=== PATIENT | female | born 1935 | race Caucasian/White ===

== ENCOUNTER 2016-09-17 08:15 | Observation (INO) | payer MEDICARE, OTHER ==
[2016-09-17] MEDS ORDERED: NS 0.9% 1000 ML* 1,000 ML IV ONE (08:18)
[2016-09-17] MEDS ORDERED: Meclizine TAB* 12.5 MG PO ONE (08:19)
[2016-09-17] MEDS ORDERED: Ondansetron INJ* 2 MG/ML VIAL IV ONE (08:19)
[2016-09-17 08:50] LABS: Hematocrit 43 % (35-47); Hemoglobin 14.4 g/dl (12.0-16.0); Mean Corpuscular HGB Conc 34 g/dl (31-36); Mean Corpuscular Hemoglobin 32 pg (27-31); Mean Corpuscular Volume 96 fL (80-97); Mean Platelet Volume 7 um3 (7.4-10.4); Red Blood Count 4.44 10^6/ul (4.0-5.4); Red Cell Distribution Width 13 % (10.5-15); White Blood Count 14.1 10^3/ul (3.5-10.8)
[2016-09-17 09:02] LABS: ALT 15 U/L (7-52); AST 17 U/L (13-39); Albumin 3.1 g/dL (3.2-5.2); Alkaline Phosphatase 94 U/L (34-104); Anion Gap 6 mmol/L (2-11); BUN/Creatinine Ratio 22.4 (8-20); Blood Urea Nitrogen 17 mg/dL (6-24); C Reactive Protein 19.05 mg/L (< 5.00); CO2 Carbon Dioxide 24 mmol/L (22-32); Calcium 8.7 mg/dL (8.6-10.3); Chloride 103 mmol/L (101-111); EGFR African American 94.2 (>60); EGFR Non-African American 73.2 (>60); Glucose 134 mg/dL (70-100); Magnesium 1.8 mg/dL (1.9-2.7); Potassium 3.9 mmol/L (3.5-5.0); Sodium 133 mmol/L (133-145); Total Protein 6.1 g/dL (6.4-8.9)
[2016-09-17 09:07] LABS: Troponin I 0.01 ng/mL (<0.04)
[2016-09-17 09:21] LABS: Alcohol < 10 mg/dL (<10)
[2016-09-17 09:30] LABS: TSH (Thyroid Stimulating Horm) 1.23 mcIU/mL (0.34-5.60)
--- NOTE | 2016-09-17 09:57 | RAD ---
Indication: Dizziness. CT of the brain without contrast. Ventricular structures are midline. No midline shift is noted. The extraction spaces are unremarkable. Coronal infarct is noted in the left frontal lobe unchanged from previous exam. Right periventricular focal area of low density also represents a lacunar infarct. These are unchanged from previous exam. There is no evidence of mass or hemorrhage. No other high or low density lesions are identified. IMPRESSION: Lacunar infarct left frontal lobe and right periventricular white matter consistent with old lacunar infarcts unchanged from prior exam. No hemorrhage is noted.
--- NOTE | 2016-09-17 10:19 | RAD ---
Indication: Dizziness. 2 views of the chest are reviewed. Chronic pleural changes in the right costophrenic angle. No alveolar consolidation is noted. There is prominent interstitium which may represent chronic interstitial disease. No pneumothorax is noted. When compared to previous exam of January 20, 2016 no significant change is noted. IMPRESSION: Chronic pleural changes in the right lung base. Likely chronic interstitial disease is noted.
[2016-09-17 10:35] LABS: Urine Bilirubin Negative (Negative); Urine Glucose Negative (Negative); Urine Nitrite Negative (Negative)
[2016-09-17 12:55] LABS: Benzodiazepine Urine Screen None Detected (None Detect)
[2016-09-17] MEDS: Ciprofloxacin TAB* 500 MG PO SCH ×2 (13:18→20:43)
[2016-09-17] MEDS ORDERED: Albuterol HFA INHALER* 8 gm MDI INH PRN (14:49)
[2016-09-17] MEDS ORDERED: Acetaminophen TAB* 325 MG PO PRN (14:50)
--- NOTE | 2016-09-17 17:19 | HP ---
HOSPITAL MEDICINE HISTORY AND PHYSICAL: DATE OF ADMISSION: 09/17/16 PRIMARY CARE PHYSICIAN: Dr. Zamudio. ATTENDING PHYSICIAN: Nishant Ortiz MD *(dictation provided by Roslyn Norman NP) . CHIEF COMPLAINT: Lightheadedness, weakness, and fall. HISTORY OF PRESENT ILLNESS: Ms. Yoo is an 81-year-old female with a past medical history of COPD, anxiety, depression, and a history of pulmonary embolism who presents today to the hospital after having lightheadedness, wooziness, and fall with weakness. Ms. Yoo states she was in her normal state of health until this morning. She was walking when she suddenly felt very woozy and lightheadedness. She denies actual dizziness. She states that she fell and felt very weak and was unable to get up off the floor and therefore , she called the EMS and was brought to the hospital. She denies any recent fevers, chills, nausea, abdominal pain or diarrhea. She has had no new frequency or dysuria. She has felt some itching on her vulva and thought perhaps she had a yeast infection and was planning to start Monistat. In the emergency room, Ms. Yoo was confirmed to have leukocytosis with a white blood cell count of 14. She had a urinalysis which was positive for leukocyte esterase but negative for nitrites. Her chest x-ray showed no acute process. CT of brain was negative. Her other laboratory values were essentially unremarkable. PAST MEDICAL HISTORY: 1. COPD. 2. Anxiety. 3. Depression. 4. GERD. 5. History of pulmonary embolism. 6. History of hysterectomy. 7. History of breast cancer. MEDICATIONS: 1. Advair Diskus 1 puff inhaled b.i.d. 2. Multivitamin 1 cap p.o. daily. 3. Prevacid 15 mg p.o. daily. 4. Seroquel 200 mg p.o. daily. 5. Tegretol 100 mg p.o. b.i.d. 6. Venlafaxine 75 mg p.o. daily. ALLERGIES: LITHIUM, STATINS, BUPROPION. FAMILY HISTORY: The patient reports her mother and father had heart disease and at an elderly age. SOCIAL HISTORY: No report of alcohol, tobacco, or drug use. The patient lives with her who would be the healthcare proxy. REVIEW OF SYSTEMS: A 14-point review of systems was completed with Ms. Yoo and all those not mentioned above are negative. PHYSICAL EXAMINATION GENERAL: Ms. Yoo is sitting in the bed. She is in no acute distress. VITAL SIGNS: Temperature 98.9, heart rate 75, respiratory rate 18, O2 saturation 96% on room air, blood pressure 127/54. LUNGS: Clear to auscultation bilaterally with no accessory muscle use and good aeration. HEART: S1, S2. No murmur, rub, or gallop and regular. ABDOMEN: Soft, nontender with bowel sounds positive x4. EXTREMITIES: No cyanosis or edema. GENITOURINARY: External examination was undertaken of the patient's vulva. She does show significant agglutination with nonvisualization of the urethra. There is no evidence of discharge or redness consistent with yeast. NEUROLOGIC: She is alert and oriented x3. She moves all extremities equally. There is no facial asymmetry or focal weakness. Extraocular movements are intact. LABORATORY DATA AND DIAGNOSTIC STUDIES: WBC 14.1, hemoglobin 14.4, hematocrit 43, platelet count 237. Sodium 133, potassium 3.9, chloride 103, serum bicarbonate 24, BUN 17, creatinine 0.76, glucose 134, lactic acid 1.4, magnesium 1.8. Troponin 0.01. CRP 19.05. BNP 146. Urine shows 3+ leukocyte esterase. CT of brain shows lacunar infarct, left frontal lobe and right periventricular white matter consistent with old lacunar infarcts, unchanged from prior exam. No hemorrhage is noted. Chest x-ray shows chronic pleural changes in the right lung base. ASSESSMENT: Ms. Yoo is an 81-year-old female with past medical history of chronic obstructive pulmonary disease, anxiety, depression, who presents today to the hospital with concern for weakness, falls precipitated by lightheadedness and wooziness. In the emergency room, she has been found to have a urinary tract infection. Our plans are for observation in the hospital for the followin. Urinary tract infection: I suspect the patient has a urinary tract infection secondary to low estrogen state and agglutination with nonvisualization of her urethra today. I think that the patient should be on a low dose topical estrogen. Unfortunately, these medications were expensive and I do refer her back to Dr. Zamudio to see what might work for her. In the meantime, the patient will be treated for her current urinary tract infection with ciprofloxacin orally b.i.d. We will await urinary cultures. We will recheck labs and white blood cell count in the morning. 2. Chronic obstructive pulmonary disease: No evidence of exacerbation. The patient can have albuterol p.r.n. 3. Anxiety and depression: Continue home medications. 4. DVT prophylaxis with heparin subcu. 5. Code status is full code. I did review this with the patient at bedside today. 6. Disposition to medical floor. TIME SPENT: Approximately 75 minutes were spent on the admission of this patient, more than half time spent with her at the bedside reviewing the events leading up to this hospitalization, performing the physical examination, and reviewing my plan of care. ROSLYN NORMAN NP CC: Dr. Zamudio * [id number]/CPS #: [id number]
--- NOTE | 2016-09-17 17:45 | ED ---
Lidya Eugene Michael, scribed for Everett Quiñones MD on 09/17/16 at 0831 . Adult Trauma - HPI Summary HPI Summary: 81 y/o female was BIBA to the ED after a mechanical fall this morning. The pt reports that she was walking from her chair to her couch when she became dizzy and fell down. She states taking Tegretol and ASA this morning before she became dizzy. The pt also c/o SOB. Per EMS, the pt did not c/o head pain, neck pain, or back pain. She also denies CP, abd pain, fever, and chills. The PMHx is significant for bipolar disorder and COPD. - History of Current Complaint Stated Complaint: SYNCOPE Time Seen by Provider: 09/17/16 08:18 Hx Obtained From: Patient, EMS, Medical Records - Allergy/Home Medications Allergies/Adverse Reactions: Allergies Allergy/AdvReac Type Severity Reaction Status Date / Time [place] Allergy Severe severe Verified 09/17/16 09:38 diarrhea Statins Allergy Mild fatigue, Verified 09/17/16 09:38 achy Bupropion [From Wellbutrin] Allergy Unknown "Bad" Verified 09/17/16 09:38 PMH/Surg Hx/FS Hx/Imm Hx Endocrine/Hematology History: Denies: Hx Anticoagulant Therapy, Hx Blood Disorders, Hx Blood Transfusions, Hx Bone Marrow Disease, Hx Diabetes, Hx Systemic Lupus Erythematosus, Hx Sickle Cell Disease, Hx Thyroid Disease, Hx Anemia, Hx Unexplained Bleeding, Other Endocrine/Hematological Disorders Cardiovascular History: Reports: Hx Embolism, Hx Hypertension, Hx Valvular Heart Disease - unsure what Denies: Hx Aneurysm, Hx Angina, Hx Angioplasty, Hx Auto Implanted Cardiovert Defib, Hx Cardiac Arrest, Hx Cardiomegaly, Hx Congenital Heart Disease, Hx Congestive Heart Failure, Hx Coronary Artery Disease, Hx Deep Vein Thrombosis, Hx Hypotension, Hx Pacemaker/ICD, Hx Peripheral Vascular Disease, Hx Rheumatic Fever, Hx Syncope, Other Cardiovascular Problems/Disorders Respiratory History: Reports: Hx Asthma, Hx Chronic Bronchitis, Hx Chronic Obstructive Pulmonary Disease (COPD), Hx Pulmonary Embolism, Hx Seasonal Allergies, Hx Sleep Apnea, Other Respiratory Problems/Disorders - pulmonary embolism 1976 and 1979 Denies: Hx Cystic Fibrosis, Hx Lung Cancer, Hx Pleural Effusion, Hx Pneumonia , Hx Pulmonary Edema GI History: Reports: Hx Gastroesophageal Reflux Disease Denies: Hx Cirrhosis, Hx Crohn's Disease, Hx Diverticulosis, Hx Gall Bladder Disease, Hx Gastrointestinal Bleed, Hx Hiatal Hernia, Hx Irritable Bowel, Hx Jaundice, Hx Obstructive Bowel, Hx Ileostomy, Hx Pyloric Stenosis, Hx Ulcer, Other GI Disorders History: Denies: Hx Acute Renal Failure, Hx Benign Prostatic Hyperplasia, Hx Chronic Renal Failure, Hx Dialysis, Hx Kidney Infection, Hx Kidney Stones, Hx Renal Disease, Other Problems/Disorders Musculoskeletal History: Denies: Hx Arthritis - HANDS, NECK, Hx Rheumatoid Arthritis, Hx Back Problems , Hx Bursitis, Hx Fibromyalgia, Hx Orthopedic Injury, Hx Osteoporosis, Hx Scoliosis, Hx Tendonitis, Other Musculoskeletal History Sensory History: Reports: Hx Contacts or Glasses, Hx Vision Problem - reading glasses Denies: Hx Cataracts, Hx Eye Injury, Hx Eye Prosthesis, Hx Glaucoma - laser surgery, Hx Legally Blind, Hx Macular Degeneration, Hx Deafness, Hx Hearing Aid , Hx Hearing Problem, Other Sensory Impairments Opthamlomology History: Reports: Hx Contacts or Glasses, Hx Vision Problem - reading glasses Denies: Hx Cataracts, Hx Eye Injury, Hx Eye Prosthesis, Hx Glaucoma - laser surgery, Hx Legally Blind, Hx Macular Degeneration, Other Sensory Impairments Neurological History: Denies: Hx Dementia, Hx Developmental Delay, Hx Headaches, Hx Migraine, Hx Nerve Disease, Hx Seizures, Hx Spinal Cord Injury, Hx Transient Ischemic Attacks (TIA), Other Neuro Impairments/Disorders Psychiatric History: Reports: Hx Anxiety - ON MEDS, Hx Depression - ON MEDS, Hx Bipolar Disorder, Other Psychiatric Issues/Disorders - seasonal affective disorder Denies: Hx Attention Deficit Hyperactivity Disorder, Hx Eating Disorder, Hx Panic Disorder, Hx Post Traumatic Stress Disorder, Hx Inpatient Treatment, Hx Community Mental Health Tx, Hx Schizophrenia, Hx Suicide Attempt, Hx of Violent Episodes Against Others, Hx Substance Abuse - Cancer History Cancer Type, Location and Year: Breast cancer Hx Chemotherapy: No Hx Radiation Therapy: Yes - BREAST LEFT Hx Palliative Cancer Treatment: No - Surgical History Surgery Procedure, Year, and Place: hysterectomy/APPENDECTOMY 1984; RIGHT foot surgery-bunion; left breast lumpectomy, 2009, ; TONSILS, Hx Anesthesia Reactions: No Infectious Disease History: Denies: Hx Hepatitis, Hx Human Immunodeficiency Virus (HIV), Hx of Known/ Suspected MRSA, Hx Shingles, Hx Tuberculosis, Hx Known/Suspected VRE, Hx Known/ Suspected VRSA, History Other Infectious Disease - Family History Known Family History: Negative: Cardiac Disease, Hypertension, Diabetes - Social History Occupation: Retired Lives: With Family Alcohol Use: Rare Substance Use Type: Reports: None Hx Tobacco Use: Yes Smoking Status (MU): Former Smoker Type: Cigarettes Amount Used/How Often: 1/2 PACK A DAY Have You Smoked in the Last Year: Yes - a couple Review of Systems Negative: Fever, Chills Negative: Chest Pain Positive: Shortness Of Breath Negative: Abdominal Pain Positive: Other - neck pain. back pain. Neurological: Other - dizziness Negative: Headache All Other Systems Reviewed And Are Negative: Yes Physical Exam - Summary Physical Exam Summary: VITAL SIGNS: Reviewed. GENERAL: Patient is a well developed and nourished female who is lying comfortable in the stretcher. Patient is not in any acute respiratory distress. HEAD AND FACE: No signs of trauma. No ecchymosis, hematomas or skull depressions. No sinus tenderness. EYES: PERRLA, EOMI x 2, No injected conjunctiva, no nystagmus. No photophobia. EARS: Hearing grossly intact. Ear canals and tympanic membranes are within normal limits. MOUTH: Oropharynx within normal limits. NECK: Supple, trachea is midline, no adenopathy, no JVD, no carotid bruit, no c- spine tenderness, neck with full ROM. No meningeal signs, no Kernig's or brudzinskis signs. CHEST: Symmetric, no tenderness at palpation LUNGS: Clear to auscultation bilaterally. No wheezing or crackles. CVS: Regular rate and rhythm, S1 and S2 present, no murmurs or gallops appreciated. ABDOMEN: Soft, non-tender. No signs of distention. No rebound no guarding, and no masses palpated. Bowel sounds are normal. EXTREMITIES: FROM in all major joints, no edema, no cyanosis or clubbing. NEURO: Alert and oriented x 3. No acute neurological deficits. Speech is normal and follows commands. SKIN: Dry and warm Triage Information Reviewed: Yes Vital Signs On Initial Exam: Initial Vitals Temp Pulse Resp BP Pulse Ox 98.8 F 80 24 124/53 94 09/17/16 08:29 09/17/16 08:29 09/17/16 08:29 09/17/16 08:29 09/17/16 08:29 Vital Signs Reviewed: Yes Diagnostics - Vital Signs Vital Signs Temp Pulse Resp BP Pulse Ox 09/17/16 08:43 98.9 F 82 22 110/72 96 09/17/16 08:29 98.8 F 80 24 124/53 94 - Laboratory Lab Results: Lab Results 09/17/16 Range/Units 08:39 WBC 14.1 H (3.5-10.8) 10^3/ul RBC 4.44 (4.0-5.4) 10^6/ul Hgb 14.4 (12.0-16.0) g/dl Hct 43 (35-47) % MCV 96 (80-97) fL MCH 32 H (27-31) pg MCHC 34 (31-36) g/dl RDW 13 (10.5-15) % Plt Count 237 (150-450) 10^3/ul MPV 7 L (7.4-10.4) um3 Neut % (Auto) 82.9 (38-83) % Lymph % (Auto) 9.5 L (25-47) % [place] % (Auto) 6.1 (1-9) % Eos % (Auto) 0.9 (0-6) % Baso % (Auto) 0.6 (0-2) % Absolute Neuts (auto) 11.7 H (1.5-7.7) 10^3/ul Absolute Lymphs (auto) 1.3 (1.0-4.8) 10^3/ul Absolute Monos (auto) 0.9 H (0-0.8) 10^3/ul Absolute Eos (auto) 0.1 (0-0.6) 10^3/ul Absolute Basos (auto) 0.1 (0-0.2) 10^3/ul Absolute Nucleated RBC 0 10^3/ul Nucleated RBC % 0 Result Diagrams: 09/17/16 08:39 09/17/16 08:39 Lab Statement: Any lab studies that have been ordered have been reviewed, and results considered in the medical decision making process. - Radiology CXR Xray Interpretation: Positive (See Comments) - Chronic pleural changes in the right lung base. Likely chronic interstitial disease is noted. Radiology Interpretation Completed By: Radiologist - CT CT brain CT Interpretation: Positive (See Comments) - Lacunar infarct left frontal lobe and right periventricular white matter consistent with old lacunar infarcts unchanged from prior exam. No hemorrhage is noted. CT Interpretation Completed By: Radiologist - EKG EK EKG Rhythm: Sinus Rhythm - 86 bpm EKG Interpretation: no st eleveation. st depression V5/V6. hyper acute P wave V3 /V4/V5 EKG Comparison: No Significant Change - similar to EKG on 09/29/11 Adult Trauma Course/Dx - Course Course Of Treatment: The blood work shows WBC 14.1 without any bands, glucose of 134, C-reactive protein shows 19.05, and BNP of 146. The urine analysis shows positive UTI which she was given Ciprofloxacin. CT showed no mass or hemorrhage and old infracts. The CXR showed no significant change from previous. ED course, patient was given Zofran and Meclizine for dizziness. Tried to ambulate the the patient, but she is very weak and has an unsteady gate. Therefore, patient is not safe for discharge. Dr. Ortiz was contacted at 1202 and accepts patient as an admission. The patient is hemodynamically stable and alert/oriented x3 - Diagnoses Differential Diagnosis/HQI/PQRI: Positive: Other - Vertigo, Menier's, CVA, TIA Provider Diagnoses: Intractable vertigo, unsafe discharge Discharge - Discharge Plan Condition: Stable Disposition: ADMITTED TO [facility] The documentation as recorded by the Lidya mc Michael accurately reflects the service I personally performed and the decisions made by , Everett Quiñones MD.
[2016-09-17] MEDS: Heparin VIAL(*) 5000 UNITS/ML VIAL (FIVE THOUSAND) SUBCUT SCH (20:43)
[2016-09-17] MEDS ORDERED: TEGRETOL PO SCH (21:00)
[2016-09-17] MEDS ORDERED: QUEtiapine TAB* 100 MG PO SCH ×2 (21:00)
[2016-09-17] MEDS ORDERED: carBAMazepine TAB(*) 200 MG PO SCH (21:00)
[2016-09-17] MEDS: carBAMazepine TAB(*) 200 MG PO SCH (21:15)
[2016-09-17] MEDS: Mometasone/Formoter 100/5 MDI INH SCH (21:42)
[2016-09-18] MEDS: Heparin VIAL(*) 5000 UNITS/ML VIAL (FIVE THOUSAND) SUBCUT SCH ×2 (05:49→13:38)
[2016-09-18 06:47] LABS: BUN/Creatinine Ratio 27.1 (8-20); Calcium 7.9 mg/dL (8.6-10.3); EGFR African American 126.1 (>60); EGFR Non-African American 98.1 (>60); Hematocrit 39 % (35-47); Hemoglobin 12.7 g/dl (12.0-16.0); Mean Corpuscular HGB Conc 33 g/dl (31-36); Mean Corpuscular Hemoglobin 33 pg (27-31); Mean Corpuscular Volume 99 fL (80-97); Mean Platelet Volume 8 um3 (7.4-10.4); Potassium 3.9 mmol/L (3.5-5.0); Red Blood Count 3.91 10^6/ul (4.0-5.4); Red Cell Distribution Width 13 % (10.5-15); White Blood Count 8.7 10^3/ul (3.5-10.8)
[2016-09-18] MEDS: carBAMazepine TAB(*) 200 MG PO SCH (08:11)
[2016-09-18] MEDS: Ciprofloxacin TAB* 500 MG PO SCH (08:12)
[2016-09-18] MEDS: Mometasone/Formoter 100/5 MDI INH SCH (08:18)
[2016-09-18] MEDS ORDERED: Venlafaxine EXT RELEASE CAP* 75 MG PO SCH (09:00)
--- NOTE | 2016-09-18 09:56 | PN ---
Subjective Date of Service: 09/18/16 Interval History: Patient seen and examined at bedside. She denies fever/chills, CP, abd pain, n/ v. She reports taking Tylenol yesterday and noticing that she "felt drugged" about 30-45 minutes after. She felt lightheaded but denies any further symptoms of this since being in the hospital. She denies dysuria but does report persistent cough and wheezing. She states, "I thought I was told I had pneumonia." Patient admits to being prescribed oxygen for home use, but she has not had a chance to call [facility] to have them deliver it. Telemetry: SR 80s Family History: Unchanged from Admission Social History: Unchanged from Admission Past Medical History: Unchanged from Admission Objective Active Medications: Acetaminophen (Tylenol Tab*) 650 mg PO Q6H PRN PRN Reason: PAIN Albuterol (Ventolin Hfa Inhaler*) 2 puff INH Q4H PRN PRN Reason: SOB/WHEEZING Carbamazepine (Tegretol Tab(*)) 100 mg PO BID [facility] Last Admin: 09/18/16 08:11 Dose: 100 mg Ciprofloxacin (Cipro Tab*) 500 mg PO Q12HR [facility] Last Admin: 09/18/16 08:12 Dose: 500 mg Heparin Sodium (Porcine) (Heparin Vial(*)) 5,000 units SUBCUT Q8HR [facility] Last Admin: 09/18/16 05:49 Dose: 5,000 units Mometasone Furoate/Formoterol Fumar (Dulera 100/5 Mdi*) 2 puff INH BID [facility] Last Admin: 09/18/16 08:18 Dose: 2 puff Quetiapine Fumarate (Seroquel Tab*) 200 mg PO BEDTIME [facility] Last Admin: 09/17/16 21:19 Dose: 200 mg Venlafaxine HCl (Effexor Xr Cap*) 75 mg PO DAILY [facility] Last Admin: 09/18/16 08:12 Dose: 75 mg Vital Signs 09/17/16 09/17/16 09/17/16 12:30 13:00 13:10 Temperature Pulse Rate 80 78 Respiratory 18 16 18 Rate Blood Pressure 130/47 (mmHg) O2 Sat by Pulse 91 94 Oximetry 09/17/16 09/17/16 09/17/16 13:30 14:52 16:00 Temperature 98.8 F 98.0 F Pulse Rate 75 83 85 Respiratory 18 20 20 Rate Blood Pressure 127/54 126/60 97/48 (mmHg) O2 Sat by Pulse 96 93 91 Oximetry 09/17/16 09/17/16 09/17/16 19:16 20:00 20:50 Temperature 99.5 F Pulse Rate 92 83 Respiratory 19 19 19 Rate Blood Pressure 113/64 (mmHg) O2 Sat by Pulse 89 93 Oximetry 09/17/16 09/18/16 09/18/16 22:20 03:23 07:30 Temperature 98.1 F 99.2 F 98.6 F Pulse Rate 93 97 89 Respiratory 18 16 16 Rate Blood Pressure 133/56 132/50 155/61 (mmHg) O2 Sat by Pulse 94 90 97 Oximetry 09/18/16 08:19 Temperature Pulse Rate 93 Respiratory 18 Rate Blood Pressure (mmHg) O2 Sat by Pulse 92 Oximetry Oxygen Devices in Use Now: Nasal Cannula - 1Lnc Appearance: Older female, sitting up in bed, in NAD Eyes: PERRLA Ears/Nose/Mouth/Throat: Clear Oropharnyx, Mucous Membranes Moist Neck: NL Appearance and Movements; NL JVP Respiratory: Symmetrical Chest Expansion and Respiratory Effort, - - expiratory wheezing and rhonchi noted in middle and lower lobes Cardiovascular: NL Sounds; No Murmurs; No JVD, RRR Abdominal: NL Sounds; No Tenderness; No Distention Extremities: No Edema Skin: No Rash or Ulcers Neurological: Alert and Oriented x 3 Lines/Tubes/Other Access: Clean, Dry and Intact Peripheral IV Nutrition: Taking PO's Result Diagrams: 09/18/16 06:00 09/18/16 06:00 Additional Lab and Data: Lab Results 09/17/16 Range/Units 08:39 WBC 14.1 H (3.5-10.8) 10^3/ul RBC 4.44 (4.0-5.4) 10^6/ul Hgb 14.4 (12.0-16.0) g/dl Hct 43 (35-47) % MCV 96 (80-97) fL MCH 32 H (27-31) pg MCHC 34 (31-36) g/dl RDW 13 (10.5-15) % Plt Count 237 (150-450) 10^3/ul MPV 7 L (7.4-10.4) um3 Neut % (Auto) 82.9 (38-83) % Lymph % (Auto) 9.5 L (25-47) % [place] % (Auto) 6.1 (1-9) % Eos % (Auto) 0.9 (0-6) % Baso % (Auto) 0.6 (0-2) % Absolute Neuts (auto) 11.7 H (1.5-7.7) 10^3/ul Absolute Lymphs (auto) 1.3 (1.0-4.8) 10^3/ul Absolute Monos (auto) 0.9 H (0-0.8) 10^3/ul Absolute Eos (auto) 0.1 (0-0.6) 10^3/ul Absolute Basos (auto) 0.1 (0-0.2) 10^3/ul Absolute Nucleated RBC 0 10^3/ul Nucleated RBC % 0 Assess/Plan/Problems-Billing Assessment: Ms. Yoo is an 81 yo female with a PMH of COPD, anxiety, depression, GERD, breast cancer, and PE who presented to the ED on 09/17/16 with lightheadedness, weakness, and fall on 09/17/16, and was found to have a UTI. - Patient Problems (1) UTI (urinary tract infection) Comment: WBC improved, afebrile overnight Awaiting urine culture, continue ciprofloxacin (2) COPD (chronic obstructive pulmonary disease) Code(s): J44.9 - CHRONIC OBSTRUCTIVE PULMONARY DISEASE, UNSPECIFIED Comment: Patient with wheezing and cough, with concern for mild exacerbation. Start prednisone 40 mg x 5 days. Continue Dulera. Continue prn albuterol. (3) Depression Code(s): F32.9 - MAJOR DEPRESSIVE DISORDER, SINGLE EPISODE, UNSPECIFIED Comment: Continue venlafaxine. (4) GERD (gastroesophageal reflux disease) Code(s): K21.9 - GASTRO-ESOPHAGEAL REFLUX DISEASE WITHOUT ESOPHAGITIS Comment : Stable, continue PPI. (5) DVT prophylaxis Code(s): FFS5318 - Comment: SQ heparin Status and Disposition: OBV admit. D/c to home when medically stable. Arrange for home O2 prior to d/c.
[2016-09-18] MEDS ORDERED: Mometasone/Formoter 200/5 MDI INH SCH ×2 (11:00→19:00)
[2016-09-18 11:37] VITALS: BP 156/65
--- NOTE | 2016-09-18 11:42 | RAD ---
INDICATION: Cough. Short of breath COMPARISON: September 17, 2016 TECHNIQUE: An AP portable view obtained at 1035 hours is submitted. FINDINGS: Bones/Soft Tissues: There are no acute bony findings. Cardiomediastinal: The cardiomediastinal silhouette is normal. Lungs: There are no infiltrates. There is mild chronic interstitial change Pleura: Chronic blunting right costophrenic angle. Other: None IMPRESSION: NO ACTIVE DISEASE. 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
[2016-09-18] MEDS ORDERED: predniSONE TAB* 20 MG PO SCH (13:00)
--- NOTE | 2016-09-18 16:05 | PN ---
Hospitalist Progress Note Patient able to demonstrate safe ambulation. Reported improvement following steroids and inhalers. Requesting to go home. We discussed using her nebulizers at home, and she agreed to this. Patient already has home albuterol nebs and machine. Home O2 arranged by case management. D/c to home.
--- NOTE | 2016-09-21 07:08 | DS ---
MEDICINE DISCHARGE SUMMARY: DATE OF ADMISSION: 09/17/16 DATE OF DISCHARGE: 09/18/16 PRIMARY CARE PHYSICIAN: Dr. Everett Zamudio. PROVIDER: Amandeep Gomez NP ATTENDING PHYSICIAN: Dr. Mehta.* (dictated by Amandeep Gomez NP) PRIMARY DISCHARGE DIAGNOSES: 1. Bronchitis. 2. Chronic obstructive pulmonary disease exacerbation. SECONDARY DISCHARGE DIAGNOSES: 1. Anxiety and depression. 2. Gastroesophageal reflux disease. 3. History of pulmonary embolism. 4. History of breast cancer. MEDICATIONS AT DISCHARGE: 1. Tegretol 100 mg b.i.d. 2. Seroquel 200 mg at bedtime. 3. Advair 500/50 one puff inhaled b.i.d. 4. Multivitamin 1 capsule daily. 5. Prevacid 15 mg daily. 6. Effexor XR 75 mg daily. 7. Prednisone 40 mg for a 5-day course. 8. Guaifenesin 1200 mg b.i.d. 9. Zithromax 500 mg on day 1 and then 250 mg for the next 4 days. HOSPITAL COURSE OF STAY: For full details, please refer to the H and P provided by Roslyn Norman NP, as well as the full medical record. In summary, Ms. Yoo is an 81-year-old female with past medical history as previously stated, who presented to the ER with concern for lightheadedness, weakness, and falls at home. The patient reported feeling very weak and only endorsed a feeling of having vaginal itching with concern of yeast infection. The patient did have leukocytosis with WBC count of 14. Her UA was positive for leukocyte esterase, but negative for nitrites. Her chest x-ray was negative for any acute process and her CT of the brain was also negative. She was admitted under observation with suspicion for urinary tract infection. The patient was started on ciprofloxacin p.o. b.i.d. There is also concern for low estrogen state and the patient was referred to her PCP to see if she would benefit from low-dose topical estrogen. The patient was monitored overnight. In the following morning, upon my assessment of the patient, she notes that she took Tylenol at home and then "felt drugged" about 30 to 45 minutes later. She states that she did feel lightheaded then, but denies any further lightheadedness or dizziness here in the hospital. She also denies dysuria, but did report that she has had worsening shortness of breath and persistent cough and wheezing. She thought that she was actually being admitted for pneumonia. I did repeat a chest x-ray , which only showed chronic interstitial changes but no definitive infiltrates or consolidation. However, it was notable that the patient did have significant wheezing and dyspnea with exertion. She was requiring oxygen here in the hospital and upon ambulation on room air, it was noted that she dropped into the 80s. When I discussed this with the patient, she states that she was prescribed oxygen for home use but never called the [facility] representative phlebotomy services to have it delivered. We did speak with case management, who did help to arrange home O2 delivery. I do feel that the patient most likely has a mild COPD exacerbation with bronchitis and there was concern that this may progress on to pneumonia if untreated. The patient was started on prednisone, which she will continue in the outpatient for a 5-day course. She states that she does have nebulizer machine at home. Given her risk factors and her presentation, I did start her on Zithromax for her COPD exacerbation and instructed her to take this to completion and follow up with her PCP closely. 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 The patient is able to demonstrate safe ambulation and has had no further episodes of lightheadedness or dizziness. No concerning events noted on telemetry. She remained in sinus rhythm. At the time of discharge, Ms. Yoo is in stable condition, was able to demonstrate safe ambulation. We discussed home oxygen use and education. She feels safe to go home. In regards to her UTI, her urine culture showed no significant growth. CONCERNS AT DISCHARGE: Ms. Yoo will be discharged to home on 09/18/16 with the plan to follow up with Dr. Zamudio on 09/22/16. DIET: May resume regular diet. ACTIVITY: As tolerated. CONDITION: Stable. DISPOSITION: To home. TIME SPENT: Time spent on this discharge was approximately 45 minutes. Again, this is only a brief summary of the patient's hospital course of stay. For full details, please refer to the full medical record. If you have any further questions or need further assistance, please feel free to contact me at . AMANDEEP GOMEZ NP CC: Dr. Everett Zamudio* [id number]/[facility] #: [id number] CHARITY
== END 2016-09-18 17:16 | disposition home or self-care (01) ==
LOC: ED 08:15 → MEDTELE 12:06
PROVIDERS: ADMIT Hospitalist; ATTEND Hospitalist
DX: R42 Dizziness and giddiness (principal); R53.1 Weakness; Y92.9 Unspecified place or not applicable; W18.39XA Other fall on same level, initial encounter; R06.02 Shortness of breath; N39.0 Urinary tract infection, site not specified; J44.9 Chronic obstructive pulmonary disease, unspecified; F41.9 Anxiety disorder, unspecified; F32.9 Major depressive disorder, single episode, unspecified; I51.7 Cardiomegaly; R94.31 Abnormal electrocardiogram [ECG] [EKG]; K21.9 Gastro-esophageal reflux disease without esophagitis; Z86.711 Personal history of pulmonary embolism; Z79.899 Other long term (current) drug therapy; Z88.8 Allergy status to other drugs, medicaments and biological substances; Z87.891 Personal history of nicotine dependence
CPT/HCPCS: 36415; 70450; 71010; 71020; 80048; 80053; 80307; 80320; 81003; 81015; 83605; 83735; 83880; 84443; 84484; 85025; 86140; 87040; 87086; 93005; 96361; 96372; 96374; 99284; A9270-GY; G0378; G0480; G8978-GP-CH; G8979-GP-CH; G8980-GP-CH; J1644; J2405; J7512

== ENCOUNTER 2017-03-07 23:46 | Inpatient (IN) | payer MEDICARE, OTHER ==
[~2017-03-07 23:46] MED LIST: NS 0.9% 1000 ML* 1,000 ML IV SCH
[2017-03-08] MEDS ORDERED: Labetalol IV* 5 MG/ML 20 ML VIAL IV PUSH ONE (00:09)
[2017-03-08 00:38] LABS: Hematocrit 43 % (35-47); Hemoglobin 14.5 g/dl (12.0-16.0); Mean Corpuscular HGB Conc 33 g/dl (31-36); Mean Corpuscular Hemoglobin 32 pg (27-31); Mean Corpuscular Volume 96 fL (80-97); Mean Platelet Volume 8 um3 (7.4-10.4); Red Blood Count 4.52 10^6/ul (4.0-5.4); Red Cell Distribution Width 13 % (10.5-15); White Blood Count 13.8 10^3/ul (3.5-10.8)
[2017-03-08 00:44] LABS: Add Diff/Slide Review? Slide Review Added; Comments Flag Yes
[2017-03-08 00:51] LABS: ALT 16 U/L (7-52); Albumin 3.5 g/dL (3.2-5.2); Alkaline Phosphatase 79 U/L (34-104); BUN/Creatinine Ratio 29.3 (8-20); Blood Urea Nitrogen 17 mg/dL (6-24); CO2 Carbon Dioxide 27 mmol/L (22-32); Chloride 106 mmol/L (101-111); EGFR African American 128.6 (>60); Globulin 3.4 g/dL (2-4); Glucose 99 mg/dL (70-100); Sodium 137 mmol/L (133-145); Total Protein 6.9 g/dL (6.4-8.9)
[2017-03-08 00:55] LABS: Anion Gap 4 mmol/L (2-11)
[2017-03-08] MEDS ORDERED: ALTEPLASE IV ONE ×2 (00:58)
[2017-03-08] MEDS ORDERED: Alteplase* 100 MG VIAL ONE (01:07)
[2017-03-08 01:42] LABS: Urine Bacteria 1+ (Absent); Urine Bilirubin Negative (Negative); Urine Glucose Negative (Negative); Urine Nitrite Negative (Negative)
[2017-03-08] MEDS ORDERED: NS 0.9% 1000 ML* 1,000 ML IV SCH (02:30)
--- NOTE | 2017-03-08 04:57 | ED ---
Mehul Eugene Rebecca, scribed for Cristi Perry on 03/08/17 at 0003 . Neurological HPI - HPI Summary HPI Summary: Pt is an 81 y/o F BIBA who presents to the ED c/o L-sided CHESTER and R-sided numbness and weakness. Per EMS, sx began suddenly at 2245 with the pt c/o numbness down her entire right side. Describes the CHESTER as "not a pounding, but it hurts." Sx aggravated and alleviated by nothing. Denies confusion and slurred speech. Last took 81 mg ASA this morning, which is her only blood thinner. EMS report that the pt was able to call them herself. BP 200/100 en route to [facility] ED. - History of Current Complaint Stated Complaint: STROKE LIKE SYMPTOMS Hx Obtained From: Patient, EMS Onset/Duration: Sudden Onset - 2244 Character: Numbness/Tingling - R-side dnumbness Aggravating: Nothing Alleviating: Nothing Associated Signs and Symptoms: Positive: Headache - L-sided CHESTER, Weakness - R- sided weakness, Numbness - R-sided - Additional Pertinent History Primary Care Physician: [id number] - Allergy/Home Medications Allergies/Adverse Reactions: Allergies Allergy/AdvReac Type Severity Reaction Status Date / Time Avery Allergy Severe severe Verified 09/17/16 09:38 diarrhea Statins Allergy Mild fatigue, Verified 09/17/16 09:38 achy Bupropion [From Wellbutrin] Allergy Unknown "Bad" Verified 09/17/16 09:38 Home Medications: Home Medications Docusate Sodium [Colace] 100 mg PO DAILY 03/08/17 [History Confirmed 03/08/17] Tiotropium CAP.INH* [Spiriva CAP.INH*] 1 cap.inh INH DAILY 03/08/17 [History Confirmed 03/08/17] PMH/Surg Hx/FS Hx/Imm Hx Endocrine/Hematology History: Denies: Hx Anticoagulant Therapy, Hx Blood Disorders, Hx Blood Transfusions, Hx Bone Marrow Disease, Hx Diabetes, Hx Systemic Lupus Erythematosus, Hx Sickle Cell Disease, Hx Thyroid Disease, Hx Anemia, Hx Unexplained Bleeding, Other Endocrine/Hematological Disorders Cardiovascular History: Reports: Hx Embolism, Hx Hypercholesterolemia, Hx Valvular Heart Disease - unsure what Denies: Hx Aneurysm, Hx Angina, Hx Angioplasty, Hx Auto Implanted Cardiovert Defib, Hx Cardiac Arrest, Hx Cardiomegaly, Hx Congenital Heart Disease, Hx Congestive Heart Failure, Hx Coronary Artery Disease, Hx Deep Vein Thrombosis, Hx Hypotension, Hx Hypertension, Hx Pacemaker/ICD, Hx Peripheral Vascular Disease, Hx Rheumatic Fever, Hx Syncope, Other Cardiovascular Problems/Disorders Respiratory History: Reports: Hx Asthma, Hx Chronic Bronchitis, Hx Chronic Obstructive Pulmonary Disease (COPD), Hx Pulmonary Embolism, Hx Seasonal Allergies, Hx Sleep Apnea, Other Respiratory Problems/Disorders - pulmonary embolism 1976 and 1979 Denies: Hx Cystic Fibrosis, Hx Lung Cancer, Hx Pleural Effusion, Hx Pneumonia , Hx Pulmonary Edema GI History: Reports: Hx Gastroesophageal Reflux Disease Denies: Hx Cirrhosis, Hx Crohn's Disease, Hx Diverticulosis, Hx Gall Bladder Disease, Hx Gastrointestinal Bleed, Hx Hiatal Hernia, Hx Irritable Bowel, Hx Jaundice, Hx Obstructive Bowel, Hx Ileostomy, Hx Pyloric Stenosis, Hx Ulcer, Other GI Disorders History: Denies: Hx Acute Renal Failure, Hx Benign Prostatic Hyperplasia, Hx Chronic Renal Failure, Hx Dialysis, Hx Kidney Infection, Hx Kidney Stones, Hx Renal Disease, Other Problems/Disorders Musculoskeletal History: Denies: Hx Arthritis - HANDS, NECK, Hx Rheumatoid Arthritis, Hx Back Problems , Hx Bursitis, Hx Fibromyalgia, Hx Orthopedic Injury, Hx Osteoporosis, Hx Scoliosis, Hx Tendonitis, Other Musculoskeletal History Sensory History: Reports: Hx Contacts or Glasses, Hx Vision Problem - reading glasses Denies: Hx Cataracts, Hx Eye Injury, Hx Eye Prosthesis, Hx Glaucoma - laser surgery, Hx Legally Blind, Hx Macular Degeneration, Hx Deafness, Hx Hearing Aid , Hx Hearing Problem, Other Sensory Impairments Opthamlomology History: Reports: Hx Contacts or Glasses, Hx Vision Problem - reading glasses Denies: Hx Cataracts, Hx Eye Injury, Hx Eye Prosthesis, Hx Glaucoma - laser surgery, Hx Legally Blind, Hx Macular Degeneration, Other Sensory Impairments Neurological History: Denies: Hx Dementia, Hx Developmental Delay, Hx Headaches, Hx Migraine, Hx Nerve Disease, Hx Seizures, Hx Spinal Cord Injury, Hx Transient Ischemic Attacks (TIA), Other Neuro Impairments/Disorders Psychiatric History: Reports: Hx Anxiety - ON MEDS, Hx Depression - ON MEDS, Hx Bipolar Disorder, Other Psychiatric Issues/Disorders - seasonal affective disorder Denies: Hx Attention Deficit Hyperactivity Disorder, Hx Eating Disorder, Hx Panic Disorder, Hx Post Traumatic Stress Disorder, Hx Inpatient Treatment, Hx Community Mental Health Tx, Hx Schizophrenia, Hx Suicide Attempt, Hx of Violent Episodes Against Others, Hx Substance Abuse - Cancer History Cancer Type, Location and Year: Breast cancer Hx Chemotherapy: No Hx Radiation Therapy: Yes - BREAST LEFT Hx Palliative Cancer Treatment: No - Surgical History Surgery Procedure, Year, and Place: hysterectomy/APPENDECTOMY 1984; RIGHT foot surgery-bunion; left breast lumpectomy, 2009, [facility]; TONSILS, Hx Anesthesia Reactions: No Infectious Disease History: Denies: Hx Hepatitis, Hx Human Immunodeficiency Virus (HIV), Hx of Known/ Suspected MRSA, Hx Shingles, Hx Tuberculosis, Hx Known/Suspected VRE, Hx Known/ Suspected VRSA, History Other Infectious Disease - Family History Known Family History: Positive: Other - non contributory Negative: Cardiac Disease, Hypertension, Diabetes - Social History Alcohol Use: Rare Substance Use Type: Reports: None Substance Use Comment - Amount & Last Used: Seroquel Hx Tobacco Use: Yes Smoking Status (MU): Former Smoker Type: Cigarettes Amount Used/How Often: 1/2 PACK A DAY Have You Smoked in the Last Year: Yes - a couple Review of Systems Positive: Other - NEGATIVE: confusion Positive: Headache - L-sided CHESTER, Weakness - R-sided weakness, Numbness - R- sided numbness. Negative: Slurred Speech All Other Systems Reviewed And Are Negative: Yes Physical Exam - Summary Physical Exam Summary: Appearance: Well appearing, no pain distress Skin: warm, dry, reflects adequate perfusion Head/face: normal Eyes: EOMI, MANPREET ENT: normal Neck: supple, nontender Respiratory: CTA, breath sounds present Cardiovascular: RRR, pulses symmetrical Abdomen: nontender, soft Bowel: present Musculoskeletal: normal, strength/ROM intact Neuro: normal, sensory motor intact, A&Ox3, no neurological deficits NIH: 0 GCS: 15 Triage Information Reviewed: Yes Vital Signs On Initial Exam: Initial Vitals BP 200/100 03/07/17 23:46 Vital Signs Reviewed: Yes Diagnostics - Laboratory Result Diagrams: 03/08/17 00:15 03/08/17 01:37 Lab Statement: Any lab studies that have been ordered have been reviewed, and results considered in the medical decision making process. - Radiology CXR Xray Interpretation: Positive (See Comments) - Right pleural effusion. Radiology Interpretation Completed By: ED Physician - CT Brain CT CT Interpretation: No Acute Changes - No evidence of acute pathology. ED physician reviewed this radiology report and agrees. CT Interpretation Completed By: Radiologist - EKG 0241 Cardiac Rate: NL - 86 bpm EKG Rhythm: Sinus Rhythm EKG Interpretation: No acute changes NIH Scale - NIH Scale Level of Consciousness: Alert/Keenly Responsive Ask Patient the Month and His/Her Age: Both Correct Ask Pt to Open/Close Eyes and Ice Cream Server/Release Non-Paretic Hand: Both Correctly Best Gaze (Only Horizontal Eye Movement): Normal Visual Field Testing: No Visual Loss Facial Paresis-Pt to Smile & Close Eyes or Grimace Symmetry: Normal/Symmetrical Motor Function - Right Arm: No Drift-Holds 10 Seconds Motor Function - Left Arm: No Drift-Holds 10 Seconds Motor Function - Right Leg: No Drift-Holds 10 Seconds Motor Function - Left Leg: No Drift-Holds 10 Seconds Limb Ataxia-Must be out of Proportion to Weakness Present: Absent Sensory (Use Pinprick to Test Arms/Legs/Trunk/Face): Normal Best Language (Describe Picture, Name Items): No Aphasia Dysarthria (Read Several Words): Normal Extinction and Inattention: No Abnormality Total Score: 0 Re-Evaluation - Re-Evaluation First Eval Re-Evaluation Time: 00:48 Comment: Discussing with Dr. Corbett who is doing the tele-consult in the room concerning TPA. Dr. Corbett recommends TPA for the pt. Course/Dx - Course Assessment/Plan: Pt is an 81 y/o F BIBA who presents to the ED c/o L-sided CHESTER and R-sided numbness and weakness. Per EMS, sx began suddenly at 2245 with the pt c/o numbness down her entire right side. Describes the CHESTER as "not a pounding , but it hurts." Sx aggravated and alleviated by nothing. Denies confusion and slurred speech. Last took 81 mg ASA this morning, which is her only blood thinner. EMS report that the pt was able to call them herself. BP 200/100 en route to [facility] ED. NIH: 0, GCS: 15. Brain CT reveals no acute findings. CXR reveals a R pleural effusion, as read by ED physician. EKG is sinus rhythm with no acute changes. In the ED course, pt received Trandate and activase. Discussed care of the pt with [facility] and they will initiate the teletroke consult and contact neurology. Discussed care of pt with Dr. Corbett at 0010 who will do a telestroke consult. Discussed with Dr. Corbett at 0048 who is doing the tele- consult in the room concerning TPA. Dr. Corbett recommends TPA for the pt. Discussed care of pt with Dr. Rodriguez who accepts pt for admission. She will be admitted with Dx of CVA and 30 minutes critical care time. Elevated BP noted and advised follow up. - Diagnoses Provider Diagnoses: CVA (cerebral vascular accident) - Physician Notifications Discussed Care Of Patient With: [facility] Transfer Center Time Discussed With Above Provider: 23:55 Instructed by Provider To: Other - Discussed the pt and they will initiate the teletroke consult and contact neurology. Discussed care of pt with Dr. Corbett at 0010 who will do a telestroke consult. Discussed care of pt with Dr. Rodriguez at 0210 who accepts pt for admission. - Critical Care Time Critical Care Time: 30-74 min - 30 minutes Discharge - Discharge Plan Condition: Stable Disposition: ADMITTED TO [facility] documentation as recorded by the Mehul mc Rebecca accurately reflects the service I personally performed and the decisions made by Vicky bunch Emmanuel.
[2017-03-08] MEDS ORDERED: Albuterol/Ipratropium NEB.SOL* Albuterol 2.5 MG/Ipratropium 0.5 MG 3 ML ONE (05:46)
--- NOTE | 2017-03-08 05:55 | HP ---
CC: Dr. Everett Zamudio * HISTORY AND PHYSICAL: DATE OF ADMISSION: 03/08/17 CHIEF COMPLAINT: Tingling on the right side of her body. HISTORY OF PRESENT ILLNESS: The patient is an 81-year-old woman, who says that at about 10:30 p.m. last night, she suddenly felt like the right side of her body was feeling numb and tingly especially her right hand. She was talking on the phone with her friend, who told her she might be concerned about a stroke, so she called 911. She then started feeling a headache on the left side of her head, which seemed to have subsided. She was having a hard time walking. She denied any slurred speech, facial droop, or trouble with word finding. She still has tingling on the right side of her body. A call was placed to Telemedicine through [place], who recommended tPA because of the time frame and her symptoms. The patient is being admitted to the ICU for possible CVA. PAST MEDICAL HISTORY: Significant for COPD, anxiety, depression, GERD, pulmonary embolism, hysterectomy, and breast cancer. CURRENT MEDICATIONS: 1. Spiriva 1 capsule inhaled daily. 2. Advair Diskus 100/50 one puff twice daily. 3. Docusate 100 mg daily. 4. Seroquel 200 mg at bedtime. 5. Prevacid 15 mg daily. 6. Multivitamin 1 capsule daily. ALLERGIES: She has an allergy/adverse reaction to LITHIUM, STATINS, and BUPROPION. FAMILY HISTORY: The patient reports her mother and father had heart disease and late in life. SOCIAL HISTORY: No tobacco, alcohol, or recreational drug use. She lives with her . Her is her healthcare proxy. REVIEW OF SYSTEMS: A 14-point review of systems was completed with the patient , all pertinent positives and negatives in the history of present illness, otherwise, is negative. PHYSICAL EXAMINATION GENERAL: Pleasant woman lying in bed, in no acute distress. VITAL SIGNS: Blood pressure 156/80, pulse oxygenation 95%, respiratory rate 19 breaths per minute, heart rate 87 beats a minute, temperature 98.5 degrees. HEENT: Normocephalic, atraumatic. Pupils are equal, round, and reactive to light. Moist mucous membranes. NECK: Supple. No JVD, bruits, palpable thyroid, or lymphadenopathy. CHEST: Her chest is clear to auscultation and percussion bilaterally. CARDIOVASCULAR: S1 and S2 appreciated. Regular rate and rhythm. ABDOMEN: Positive bowel sounds in all 4 quadrants. Soft, nontender, and nondistended. No hepatosplenomegaly. EXTREMITIES: No cyanosis or clubbing. Mild bilateral edema. NEURO: She is alert and oriented x3, she moves all extremities. 5/5 motor strength in upper and lower extremities. No evidence of pronator drift. Good [id number]-[id number] bilaterally. SKIN: No rashes or abnormalities. DIAGNOSTIC STUDIES/LAB DATA: White count 13.8, hemoglobin 14.5, hematocrit 43 , platelets are 296. Sodium 137, potassium 4.1, chloride 106, CO2 27, BUN 17, creatinine 0.58. INR 0.88. Urinalysis does show 1+ white cells, 1+ rbc's, and +1 leukocyte esterase. shows no acute infiltrates. Head CT shows no evidence of hemorrhage or intracranial mass. EKG shows normal sinus rhythm at 86 beats a minute, left axis deviation, left anterior hemiblock, LVH, left atrial enlargement. ASSESSMENT AND PLAN: 1. Possible cerebrovascular accident. Appreciate Teleneuro's input. The patient placed on tPA in the ED. We will admit the patient to ICU. Neuro checks q. [address] imaging in the evening, MRI in the morning, transthoracic echocardiogram with bubble study, and CTA of head and neck. . 2. Chronic obstructive pulmonary disease. Continue current regimen, currently asymptomatic. 3. Depression. Continue Seroquel, stable. 4. FEN. NPO. Normal saline at 100 cc an hour. 5. DVT prophylaxis. Wear compression stocking, hold heparin with tPA. 6. The patient is a full code. TIME SPENT: Over 80 minutes was spent on this H and P, more than 45 minutes was spent in direct [id number]-[id number] contact with the patient in evaluation, physical exam, counseling, and coordination of care. [id number]/[facility] #: [id number] CHARITY
[2017-03-08 06:38] LABS: Hematocrit 38 % (35-47); Hemoglobin 12.8 g/dl (12.0-16.0); Mean Corpuscular HGB Conc 34 g/dl (31-36); Mean Corpuscular Hemoglobin 33 pg (27-31); Mean Corpuscular Volume 96 fL (80-97); Mean Platelet Volume 7 um3 (7.4-10.4); Red Blood Count 3.95 10^6/ul (4.0-5.4); Red Cell Distribution Width 12 % (10.5-15); White Blood Count 9.4 10^3/ul (3.5-10.8)
[2017-03-08 06:53] LABS: HDL Cholesterol 40.8 mg/dL
--- NOTE | 2017-03-08 08:04 | RAD ---
INDICATION: CVA. COMPARISON: Comparison is made with a prior CT of the brain from September 17, 2016. TECHNIQUE: Contiguous axial sections of the brain were obtained from the skull base to the vertex without contrast. FINDINGS: The ventricles, cisterns and sulci are within normal limits. There are old infarcts within the right lentiform nucleus and left periventricular white matter which appear unchanged. No other focal abnormality or mass effect is seen. There is no evidence for hemorrhage. There is mucosal thickening within the right ethmoid air cells. The remaining visualized portion of the paranasal sinuses and mastoid air cells appear clear. IMPRESSION: 1. NO EVIDENCE FOR GROSS ACUTE INFARCT, MASS EFFECT OR HEMORRHAGE. 2. MULTIPLE SMALL OLD LACUNAR INFARCTS.
--- NOTE | 2017-03-08 08:05 | RAD ---
Indication: Stroke symptoms. Comparison: February 14, 2017 and September 18, 2016 Technique: Upright AP 0200 hours Report: Unchanged mild peripheral elevation of the RIGHT hemidiaphragm versus subpulmonic small pleural effusion. Mild prominence of the interstitial markings. Negative for pneumothorax. The heart, pulmonary vasculature, and mediastinal contours are unremarkable. IMPRESSION: 1. Unchanged mild peripheral elevation of the RIGHT hemidiaphragm versus subpulmonic small pleural effusion compared with the September 18, 2016 exam. 2. No evidence for acute intrathoracic disease.
[2017-03-08] MEDS: Docusate CAP* 100 MG PO SCH (08:37)
[2017-03-08] MEDS: Omeprazole CAP* 20 MG PO SCH (08:37)
[2017-03-08] MEDS: Vitamin THERAPEUTIC TAB PO SCH (08:37)
[2017-03-08] MEDS ORDERED: Spiriva Inhaler DEVICE* 1 EACH DEVICE ONE (09:00)
[2017-03-08] MEDS: Mometasone/Formoter 200/5 MDI INH SCH ×2 (09:30→22:01)
[2017-03-08] MEDS: Tiotropium CAP.INH* CAP.INH/18 MCG INH SCH (09:30)
--- NOTE | 2017-03-08 11:49 | PN ---
Progress Note - Progress Note Date of Service: 03/08/17 Note: CRITICAL CARE MEDICINE Date: 03/08/17 Time: 1104 SUBJECTIVE: Patient seen and examined. PHYSICAL EXAM: Vital Signs: Reviewed. stable. bp up a touch (and was high when she presented) Neurologic: AAO. still with R hemiparesthesia otherwise nonfocal. HEENT: pupils equal. Sclera anicteric. Trachea midline. Cardiovascular: S1 S2 Respiratory: clear Abdomen: Soft, nt. No r/g/r. Extremities: Warm. LABS: Reviewed. IMAGING: Reviewed. MEDICATIONS: Reviewed. ASSESSMENT/PLAN: 81 F 1. 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 Risk factor modification evals underway - f/u labs, echo , mri, ct at 24h post tpa -swallow eval. pt prn - neuro f/u 2. Presented with elevated hypertention - may have been long standing and uncontrolled with underlying lvh (echo pending) start amlodipine today but then f/u for longer term htn needs 3. Copd - ?gurvinder - states she is on 2L O2 nocturnally. continue. continued outpt rx. 4. gerd - omeprazole 5. depression/anxiety - oupt tx Supportive and preventative care as ordered. SUP: on ppi; po diet VTE prophylaxis: scds; oob Disposition: to floor with tele for first 48h Code Status: Full Critical Care Time: 30min FDavid Jackson DO
--- NOTE | 2017-03-08 12:04 | RAD ---
HISTORY: Stroke, right-sided body tingling and numbness COMPARISONS: June 21, 2016 TECHNIQUE: The following sequences were obtained of the head: Sagittal T1-weighted images, axial T2-weighted images, axial FLAIR images, axial susceptibility weighted images, axial T1-weighted images. Additionally, axial diffusion-weighted images were obtained with calculated apparent diffusion coefficients. There is a small focus of restricted diffusion within the left thalamus. Elsewhere, there is no hemorrhage or acute infarct. FINDINGS: HEMORRHAGE/INFARCT: There is no hemorrhage or acute infarct. MASSES/SHIFT: There is no mass or shift. EXTRA-AXIAL SPACES/MENINGES: There are no extra-axial fluid collections. SULCI AND VENTRICLES: The sulci and ventricles are normal in size and position for the patient's stated age. CEREBRUM: There are scattered small foci of elevated T2/FLAIR signal in the periventricular and subcortical white matter. There is minimal cortical encephalomalacia of the posterior aspect of the right superior frontal gyrus consistent with remote infarct. There is minimal elevated T2/FLAIR signal within the left thalamus corresponding to there is restricted diffusion. BRAINSTEM: There are no focal parenchymal abnormalities. CEREBELLUM: There are no focal parenchymal abnormalities. The cerebellar tonsils are normal in size and position. SELLA: The sella is normal. PINEAL: The pineal region is clear. CP ANGLE/TEMPORAL BONES: The labyrinthine structures are grossly normal. VESSELS: Normal flow-voids are noted within the visualized vertebral vasculature. DIFFUSION ABNORMALITIES: As noted above, there is a small focus of restricted diffusion within the left thalamus consistent with subacute nonhemorrhagic infarct. PARANASAL SINUSES/MASTOIDS: There is an air-fluid level within the right maxillary sinus ORBITS: The orbits are unremarkable. BONES AND SOFT TISSUE: No bone or soft tissue abnormalities are noted. OTHER: None IMPRESSION: 1. SMALL, SUBACUTE NONHEMORRHAGIC INFARCT OF THE LEFT THALAMUS. 2. PROXIMAL VESSEL ISCHEMIC CHANGES WITH EVIDENCE OF REMOTE RIGHT FRONTAL INFARCT. 3. MILD SINUS MUCOSAL INFLAMMATORY DISEASE, WITH AN AIR-FLUID LEVEL IN THE RIGHT MAXILLARY SINUS. IN THE CORRECT CLINICAL SETTING, THIS MAY REPRESENT ACUTE SINUSITIS
[2017-03-08] MEDS: amLODIPine TAB* 5 MG PO SCH (14:03)
[2017-03-08] MEDS: ALPRAZolam TAB* 0.25 MG PO PRN (14:03)
[2017-03-08] MEDS ORDERED: hydrALAZINE IV* 20 MG/ML VIAL IV SLOW PU ONE (14:04)
--- NOTE | 2017-03-08 14:57 | RAD ---
CPT II: CPT II Codes: 3100F Indication: Stroke. Duplex Doppler sonography of the carotid arteries was performed. Right common carotid artery demonstrates intimal wall thickening plaque extending into the right internal carotid artery. Peak systolic velocity of the distal right common carotid artery is 134 cm/s. Peak systolic velocity of the right internal carotid artery is 170 cm. The ICA/CCA ratio is 1.27. Right vertebral artery demonstrates antegrade flow. Left common carotid artery demonstrates intimal wall thickening plaque in the carotid bulb extending into the left internal carotid artery. Peak systolic velocity of the distal left common carotid artery is 111 cm/s. Peak systolic velocity of the left internal carotid artery is 124 cm/s. The IC/CC ratio is 1.12. Left vertebral artery demonstrates antegrade flow. IMPRESSION: No hemodynamically significant stenosis is noted in either internal carotid artery. Bilateral less than 50% stenosis of the internal carotid arteries.
[2017-03-08] MEDS: Albuterol/Ipratropium NEB.SOL* Albuterol 2.5 MG/Ipratropium 0.5 MG 3 ML INH PRN (15:17)
--- NOTE | 2017-03-08 15:38 | ECHO ---
Patient: LEAH MACEDO [facility] Rec#: [id number] : 1935 Date: 03/08/2017 Age: 81y Height: 162.56 cm / 64.0 in Weight: 79.38 kg / 175.0 lbs Sex: F BSA: 1.85 Room#: [facility]6 Admit Date#: 03/08/2017 Type: Inpatient Referring: Taqueria Rodriguez MD Reading: Gm Goyal DO Jawbone Puller: [facility] Transthoracic Echocardiogram Indication: CVA BP: 115/54 HR: 78 Rhythm: NSR Findings History: COPD, GERD, pulmonary embolism, breast cancer, LAKISHA, former smoker. Technical Comments: The study quality is fair. The study is technically limited due to poor parasternal windows. The study is technically limited due to the patient's history of COPD. Completed at 1015. Left Ventricle: The left ventricular chamber size is normal. Mild to moderate concentric left ventricular hypertrophy is observed. There is a prominent septal knuckle. Global left ventricular wall motion and contractility are within normal limits. There is normal left ventricular systolic function. The estimated ejection fraction is greater than 65%. Abnormal left ventricular diastolic function is observed. Left Atrium: The left atrium is severely dilated. Right Ventricle: The right ventricular chamber size and systolic function are within normal limits. Right Atrium: The right atrial cavity size is normal. Interatrial septum appears intact without evidence of shunting. A patent foramen ovale is not demonstrated with color Doppler and agitated contrast. Aortic Valve: The aortic valve is trileaflet. Mild aortic leaflet calcification is visualized. Systolic excursion of the aortic valve cusps is reduced. There is a trace of aortic regurgitation. There is moderate aortic stenosis. The mean gradient of the aortic valve is 30.92 mmHg. peak velocity 3.55 m/s Mitral Valve: Severe mitral annular calcification present. The mitral valve leaflets are mildly thickened. There is mild mitral regurgitation. There is mild mitral stenosis. , mean gradient 2.85 mmHg Tricuspid Valve: The tricuspid valve leaflets are mildly thickened. There is mild tricuspid regurgitation. No pulmonary hypertension is noted. There is no tricuspid stenosis. Pulmonic Valve: The pulmonic valve structure is not well visualized. There is a trace pulmonic regurgitation. There is no pulmonic stenosis. Pericardium: There is no significant pericardial effusion. Aorta: There is no dilatation of the ascending aorta. The aortic arch is not well visualized. There is no dilation of the aortic root. Pulmonary Artery: The main pulmonary artery is not well visualized. Venous: The inferior vena cava appears normal in size. There is a greater than 50% respiratory change in the inferior vena cava dimension. Contrast: Normal saline was used as contrast for the bubble study. Images 7 and 8. Intravenous contrast was used to help determine presence of intracardiac shunting. Conclusions The left ventricular chamber size is normal. Mild to moderate concentric left ventricular hypertrophy is observed. There is normal left ventricular systolic function. The estimated ejection fraction is normal at 65-70% The left atrium is severely dilated. The right ventricular chamber size and systolic function are within normal limits. A patent foramen ovale is not demonstrated with color Doppler and agitated contrast (negative bubble study) There is moderate aortic stenosis. Severe mitral annular calcification present. There is mild mitral stenosis. Compared to prior study from 02/27/2017, no clinically signficant changes noted. Measurements Name Value Normal Range RVIDd (AP) 2D 2.1 cm (0.9 - 2.6) RVDdMajor (2D) 3.4 cm (2.2 - 4.4) RAd ISD 4CH 4.6 cm (3.4 - 4.9) RA (A4C)W 4.2 cm (2.9 - 4.6) IVSd (2D) 1.4 cm (0.6 - 1) LVPWd (2D) 1.4 cm (0.6 - 1) LVIDd (2D) 3.5 cm (3.6 - 5.4) LVIDs (2D) 2.1 cm - LV FS (2D) 33 % (25 - 45) Aortic Annulus 1.6 cm (1.4 - 2.6) Ao root diameter (2D) 2.6 cm (2.1 - 3.5) Ascending Ao 2.9 cm (2.1 - 3.4) LA dimension (AP) 2D 3.6 cm (2.3 - 3.8) LAd ISD 4CH 6.2 cm (2.9 - 5.3) LA ISD 4CH W 4.5 cm (2.5 - 4.5) Name Value Normal Range LA ESV SP 4CH (A/L) 113 ml - LA ESV SP 2CH (A/L) 90 ml - LA ESV BP (A/L) 103 ml - LA ESV BP (A/L) index 55.58 ml/m2 - LA ESV SP 4CH (MOD) 103 ml - LA ESV SP 2CH (MOD) 87 ml - Name Value Normal Range MV E-wave Vmax 0.98 m/sec - MV deceleration time 218.9 msec - MV A-wave Vmax 1.2 m/sec - MV E:A ratio 0.82 ratio - LV septal e' Vmax 0.05 m/sec - LV lateral e' Vmax 0.06 m/sec - LV E:e' septal ratio 19.6 ratio - LV E:e' lateral ratio 16.33 ratio - Name Value Normal Range AV Vmax 3.55 m/sec - AV VTI 77 cm - AV peak gradient 50.55 mmHg - AV mean gradient 30.92 mmHg - LVOT diameter 2 cm - LVOT Vmax 1.23 m/sec - LVOT VTI 29.98 cm - LVOT peak gradient 6.08 mmHg - LVOT mean gradient 4.09 mmHg - DOI (VTI) 0.39 ratio - ADRIANA (continuity VTI) 1.22 cm2 - Name Value Normal Range MV Vmax 1.27 m/sec - MV VTI 34.91 cm - MV peak gradient 6.54 mmHg - MV mean gradient 2.85 mmHg - MV PHT 66.6 msec - MVA (PHT) 3.3 cm2 - MVA (continuity VTI) 2.71 cm2 - Name Value Normal Range TR Vmax 2.6 m/sec - TR peak gradient 27 mmHg - RAP 3 mmHg - IVC diameter 1.8 cm - Name Value Normal Range PV Vmax 0.85 m/sec - PV peak gradient 2.92 mmHg -
--- NOTE | 2017-03-08 17:51 | RAD ---
Indication: Follow-up TPA injection. CT of the brain was performed without IV contrast and compared to exam done earlier the same day. Ventricular structures are midline. No midline shift is noted. The extra-axial spaces are unremarkable. There is no evidence of intracranial mass or hemorrhage. Mastoid air cells and paranasal sinuses are unremarkable. IMPRESSION: No intracranial mass or hemorrhage is noted. The patient is status post stroke with T PA injection.
--- NOTE | 2017-03-08 21:40 | CONS ---
NEUROLOGY CONSULTATION: DATE OF CONSULTATION: 03/08/17 REFERRING PROVIDER: Dr. Jackson. LOCATION: She is in ICU bed 6. CHIEF COMPLAINT: Right-sided numbness. HISTORY OF PRESENT ILLNESS: Nicole Yoo is an 81-year-old right-handed woman who was up last night at about 10:30, when noticed numbness of the right hand. She has tried to reposition, but it spread to involve her right arm and then her right face and right side of her body. She presented to the emergency room and hemisensory deficits on the right when evaluated by Dr. Perry. She had a stroke consultation by Dr. Corbett. It was decided to administered TPA and it was administered according to the usual stroke dosing guidelines. Her initial head CT was unremarkable. Today, she still notes numbness of the right face, arm , body, and leg and it feels "odd." She is not sure if the right hand is weak or just numb, but she feels that she would be uncomfortable trying to handle a steering wheel with it. She has no headache, change in vision, or difficulty with speech or swallowing. There is no prior history of stroke clinically, but she had an MRI of the brain last year, which revealed some old ischemic lesions. She had an MRI of the brain today, which reveals an acute left thalamic small vessel infarction. PAST MEDICAL HISTORY: Notable for COPD, depression, anxiety, gastroesophageal reflux, remote history of breast cancer, and pulmonary embolism. MEDICATIONS AT HOME: Consist of 1. Aspirin 81 mg p.o. daily. 2. Seroquel 200 mg q.h.s. 3. Prevacid 15 mg p.o. daily. 4. Advair Diskus 1 puff b.i.d. ALLERGIES: She had myalgias to multiple trials of STATINS. She had some type of adverse reaction to LITHIUM. FAMILY HISTORY: Noncontributory. SOCIAL HISTORY: She lives at home with her who has Alzheimer's disease. They have no other family in the area. There is an aide who is with him currently. She does not smoke and she does drink alcohol. PHYSICAL EXAMINATION: She is well nourished and well hydrated. Temperature 97.9 temporally, blood pressure most recently 140/78, heart rate is at 80 and sinus on the monitor, respiratory rate is 20, oxygen saturation is 93% on 2 L nasal cannula. Lungs are clear. Neck is supple. Head is atraumatic. Oral mucosa is moist. Carotid pulses are symmetrical and there are no cervical bruits. There is a loud, harsh systolic murmur of the upper right sternal border. Neurological Exam: Pupils react equally from 3.5 to 2.5 mm. Eye movements are full and visual hartmann are full to confrontation. Funduscopic exam is normal. Facial musculature is symmetric. There is no ptosis. Palate and tongue appear normal and speech is clear without dysarthria. Tongue protrudes in the midline and and palate rises symmetrically. Facial sensation is absent to temperature on the right side of the face and also to pin discrimination. Facial sensation in the left side is normal. Hearing is intact bilaterally. Motor exam of the limbs revealed normal muscle tone and strength proximally and distally. There is some upward drift of the right arm with eye closing, but pronator drift. She has good strength proximally and distally in upper and lower extremities. Sensory exam is notable for absent sharp-dull discrimination diffusely in the right side of the body, absent light touch in the right leg below the knee. She cannot sense temperature on the right side of her body either. Reflexes are hypoactive, but present. Plantar responses are extensor on the right and flexor on the left. She is very anxious, but a very good historian with intact memory and with fluent language. LABORATORY DATA: CBC, which is unremarkable, platelet count 291,000. Her INR early this morning is 0.92, PTT 22.2. Chemistry profile notable for normal glucose, creatinine, and cholesterol early this morning was 182 with LDL of 120. Carotid ultrasound done earlier this afternoon is interpreted as showing no hemodynamically significant stenosis of the extracranial carotid arteries, but atherosclerotic changes are noted. A brain MRI interpreted as showing an acute left thalamic small vessel infarction as well as remote right frontal infarction. IMPRESSION: Small vessel left thalamic infarction causing hemisensory deficits. She was on aspirin therapy at the time of the stroke. Currently, her blood pressure is adequate. She is not diabetic and is not a smoker. Her CT scan is planned for 24 hours after TPA, which should be about 1: 30 this morning. In that does not show any hemorrhage, then I would start Plavix with plans for dual antiplatelet therapy for 90 days and then Plavix monotherapy. Her echocardiogram is pending and the results will be reviewed. It sounds as though she did not tolerate statins in the past and so I would hold off and reintroducing statins right at this point in time. Continue to follow her allowing with you. [id number]/[facility] #: [id number] CHARITY
[2017-03-08] MEDS: QUEtiapine TAB* 100 MG PO SCH (22:14)
[2017-03-09] MEDS ORDERED: LORazepam INJ* 2 MG/ML 1 ML VIAL IV PUSH ONE (00:24)
[2017-03-09] MEDS ORDERED: LORazepam INJ* 2 MG/ML 1 ML VIAL ONE (00:25)
[2017-03-09] MEDS: Mometasone/Formoter 200/5 MDI INH SCH ×3 (03:20→20:50)
[2017-03-09 04:22] LABS: Hematocrit 42 % (35-47); Hemoglobin 13.8 g/dl (12.0-16.0); Mean Corpuscular HGB Conc 33 g/dl (31-36); Mean Corpuscular Hemoglobin 32 pg (27-31); Mean Corpuscular Volume 96 fL (80-97); Mean Platelet Volume 7 um3 (7.4-10.4); Red Blood Count 4.33 10^6/ul (4.0-5.4); Red Cell Distribution Width 13 % (10.5-15); White Blood Count 8.4 10^3/ul (3.5-10.8)
[2017-03-09 04:36] LABS: BUN/Creatinine Ratio 20.8 (8-20); Calcium 8.6 mg/dL (8.6-10.3); EGFR African American 142.7 (>60); Potassium 4.1 mmol/L (3.5-5.0)
[2017-03-09] MEDS: Tiotropium CAP.INH* CAP.INH/18 MCG INH SCH (08:25)
[2017-03-09] MEDS: amLODIPine TAB* 5 MG PO SCH (09:01)
[2017-03-09] MEDS: Omeprazole CAP* 20 MG PO SCH (09:01)
[2017-03-09] MEDS: Vitamin THERAPEUTIC TAB PO SCH (09:01)
[2017-03-09] MEDS: Docusate CAP* 100 MG PO SCH (09:01)
[2017-03-09] MEDS: Clopidogrel TAB* 75 MG PO SCH (11:24)
[2017-03-09] MEDS: Aspirin EC Low Dose* 81 MG TAB.EC PO SCH (11:24)
--- NOTE | 2017-03-09 11:38 | PN ---
Progress Note - Progress Note Date of Service: 03/09/17 Note: CRITICAL CARE MEDICINE Date: 03/09/17 Time: 1040 SUBJECTIVE: Patient seen and examined. PHYSICAL EXAM: Vital Signs: Reviewed. stable. bp fluctuates a bit but better. Neurologic: AAO. R hemiparesthesia otherwise nonfocal. HEENT: pupils equal. Sclera anicteric. Trachea midline. Cardiovascular: S1 S2 Respiratory: clear Abdomen: Soft, nt. No r/g/r. Extremities: Warm. LABS: Reviewed. IMAGING: Reviewed. MEDICATIONS: Reviewed. ASSESSMENT/PLAN: 81 F 1. Left thalamus cva s/p TPA with residual right hemiparasthesia - placed on asa and plavix. no statin sec to allergy - neuro f/u 2. Hypertention - on amlodipine. oupt f/u 3. Copd - 2L O2 nocturnally. continue outpt rx. 4. gerd - omeprazole 5. depression/anxiety - oupt tx Supportive and preventative care as ordered. SUP: outpt ppi; po diet VTE prophylaxis: hsq; oob Disposition: to floor Code Status: Full Critical Care Time: 30min FDavid Jackson DO
[2017-03-09] MEDS: Heparin VIAL(*) 5000 UNITS/ML VIAL (FIVE THOUSAND) SUBCUT SCH ×2 (16:01→21:15)
[2017-03-09] MEDS: QUEtiapine TAB* 100 MG PO SCH (21:15)
--- NOTE | 2017-03-10 00:27 | CONS ---
NEUROLOGY FOLLOWUP NOTE: DATE OF FOLLOWUP: 02/06/17 LOCATION: She is in room 451. HOSPITALIST: Dr. Jackson. CHIEF COMPLAINT: Right-sided numbness. INTERVAL HISTORY: Since yesterday, Mr. Yoo feels a little bit better. She still notes numbness and tingling of her right face, arm, and leg. She felt a little bit unsteady standing with her walk er today, but was able to to do so. She notes her right hand is a bit clumsy. She does not have an y pain. No visual symptoms. She had a CT of the brain last night which I reviewed and which revealed some chronic low density ar eas in the deep white matter, but no hemorrhages or subacute infarctions. There may be a little hyp odensity in the left thalamus. A carotid ultrasound study yesterday did not reveal significant sten osis on either side. Transthoracic echocardiogram revealed some mitral and aortic valvular disease, but no major abnormalities. LABORATORY DATA: Includes chemistries with the cholesterol of 182 and LDL 120. The rest of the chem istry profile was unremarkable. PHYSICAL EXAMINATION: She is well nourished and well hydrated. Temperature 98.3 orally, blood pres sure 142/53, heart rate 80 and regular. Respiratory rate is about 18 and oxygen saturation is 92% o n room air. Heart is in a regular rhythm without murmurs. Neurologically, pupils react equally fro m 3 to 2 mm. Eye movements and visual hartmann are normal. Facial musculature is symmetric. Palate and tongue appear normal and speech is clear. Sensory exam is notable for diminished light touch on the right side of the face in all 3 divisions. She has diminished light touch in the arm and leg a s well. She has normal strength in limbs and no drift. Finger taps are slow and clumsy in the righ t hand and normal on the left. She is alert and oriented and a good historian with intact memory an d fluent language. IMPRESSION: Small left thalamic infarction. Hopefully, she will not develop a thalamic pain syndro me. She is on dual antiplatelet therapy with aspirin and Plavix. I recommend continuing it for 90 days and then switching to Plavix monotherapy. She is intolerant to statins, so I am not sure if there i s anything that would be worth challenging her with at this point. Her blood pressure control is qu ite adequate. She might benefit from a rehab stay and I will discuss that with the Hospitalist. [id number]/[facility] #: [id number]
[2017-03-10] MEDS: Heparin VIAL(*) 5000 UNITS/ML VIAL (FIVE THOUSAND) SUBCUT SCH ×3 (05:19→21:03)
[2017-03-10] MEDS: CMC:Pantoprazole TAB (NF) 40 MG TAB PO SCH (07:25)
[2017-03-10] MEDS: Tiotropium CAP.INH* CAP.INH/18 MCG INH SCH (08:48)
[2017-03-10] MEDS: Mometasone/Formoter 200/5 MDI INH SCH ×2 (08:49→20:47)
[2017-03-10] MEDS: Clopidogrel TAB* 75 MG PO SCH (09:37)
[2017-03-10] MEDS: amLODIPine TAB* 5 MG PO SCH (09:37)
[2017-03-10] MEDS: Vitamin THERAPEUTIC TAB PO SCH (09:37)
[2017-03-10] MEDS: Aspirin EC Low Dose* 81 MG TAB.EC PO SCH (09:37)
[2017-03-10] MEDS: Docusate CAP* 100 MG PO SCH (09:38)
[2017-03-10] MEDS: Albuterol/Ipratropium NEB.SOL* Albuterol 2.5 MG/Ipratropium 0.5 MG 3 ML INH PRN (12:10)
[2017-03-10] MEDS: ALPRAZolam TAB* 0.25 MG PO PRN (12:57)
--- NOTE | 2017-03-10 13:23 | CONS ---
NEUROLOGY FOLLOWUP NOTE: DATE OF FOLLOWUP: 03/10/17 HOSPITALIST: Dr. Rodriguez. CHIEF COMPLAINT: Left thalamic stroke. INTERVAL HISTORY: Since yesterday, Ms. Yoo feels the same. The right face, arm, and leg still feel numb. She is getting frustrated sitting in the hospital. She only ambulates with assistance, but has been to the bathroom 3 times. She has been able to eat breakfast without swallowing difficulties. She does not have any pain. MEDICATIONS: Medications were reviewed and she is on: 1. Aspirin 81 mg p.o. daily. 2. Plavix 75 mg p.o. daily. 3. Heparin 5000 units subcutaneous q.8 hours. 4. Quetiapine 200 mg p.o. q.h.s. 5. Amlodipine 10 mg p.o. daily. ALLERGIES: She is intolerant with statins. PHYSICAL EXAMINATION: She is well nourished and well hydrated. Temperature 98.2 orally, blood pressure 140/50, heart rate in the 80s and regular. Respirations were 18 and oxygen saturation is 93% on room air. Facial musculature symmetric. Palate and tongue are normal and speech is clear. Eye movements are normal. Motor exam reveals normal muscle tone and strength in the limbs. There is no pronator drift. Sensory exam is notable for absent light touch in the right distal lower extremity and diminished light touch in the right face and arm. There is diminished pin discrimination in the right face, arm, and leg, intact on the left. There is diminished proprioception in the right forefinger. There is no pseudoathetosis. Finger taps are normal in both hands. She is alert and oriented and frustrated. Memory is intact and language is fluent. There is no new laboratory data to review. IMPRESSION: Left thalamic stroke which is stable. She is on dual antiplatelet therapy and her blood pressure is adequately controlled. She did not tolerate statins in the past. At this point, disposition needs to be assessed. She might benefit from a rehab stay. She should remain on dual antiplatelet therapy for 90 days and then be switched to Plavix monotherapy. [id number]/[facility] #: [id number] MTDD
--- NOTE | 2017-03-10 13:49 | PN ---
Subjective Date of Service: 03/10/17 Interval History: Patient seen this afternoon. No new complaints, no change in R sensory symptoms. Frustrated about symptoms, wondering what exercises she should be doing. Family History: Unchanged from Admission Social History: Unchanged from Admission Past Medical History: Unchanged from Admission Objective Active Medications: Albuterol/Ipratropium (Duoneb (Albuterol 2.5 Mg/Ipratropium 0.5 Mg)) 1 neb INH Q2H PRN Alprazolam (Xanax Tab*) 0.25 mg PO TID PRN Amlodipine Besylate (Norvasc Tab*) 10 mg PO DAILY PITA Aspirin (Aspirin Ec Low Dose*) 81 mg PO DAILY PITA Clopidogrel Bisulfate (Plavix Tab*) 75 mg PO DAILY PITA Docusate Sodium (Colace Cap*) 100 mg PO DAILY PITA Heparin Sodium (Porcine) (Heparin Vial(*)) 5,000 units SUBCUT Q8HR PITA Mometasone Furoate/Formoterol Fumar (Dulera 200/5 Mdi*) 2 puff INH BID PITA Multivitamins (Theragran Tab*) 1 tab PO DAILY PITA Pantoprazole Sodium (Protonix Tab (Nf)) 40 mg PO DAILY@0730 PITA Quetiapine Fumarate (Seroquel Tab*) 200 mg PO BEDTIME PITA Tiotropium [place] (Spiriva Cap.Inh*) 1 cap INH DAILY PITA Vital Signs 03/09/17 03/09/17 03/09/17 15:33 20:02 20:53 Temperature 97.8 F 98.2 F Pulse Rate 91 88 Respiratory 18 20 Rate Blood Pressure 143/44 154/56 (mmHg) O2 Sat by Pulse 91 95 98 Oximetry 03/10/17 03/10/17 03/10/17 08:54 11:14 12:12 Temperature Pulse Rate 81 81 81 Respiratory 16 18 16 Rate Blood Pressure 140/51 (mmHg) O2 Sat by Pulse 93 93 96 Oximetry Oxygen Devices in Use Now: None Appearance: Elderly, F, sitting in chair in NAD Eyes: No Scleral Icterus Ears/Nose/Mouth/Throat: Mucous Membranes Moist Neck: NL Appearance and Movements; NL JVP Respiratory: Symmetrical Chest Expansion and Respiratory Effort, - - no wheezing , diminished in the bases Cardiovascular: RRR, - - 3/6 PENG Abdominal: NL Sounds; No Tenderness; No Distention Lymphatic: No Cervical Adenopathy Extremities: No Edema Skin: No Rash or Ulcers Neurological: Alert and Oriented x 3, - - R Result Diagrams: 03/09/17 04:12 03/09/17 04:12 Microbiology and Other Data: Microbiology 03/08/17 04:30 Nasal Screen MRSA (PCR)(MARK) - Final Nasal Mrsa Negative Assess/Plan/Problems-Billing Assessment: Melisa satinder CVA s/p TPA in an 81 yo F with hx of HTN, COPD on home nocturnal O2, GERD, depression/anxiety - Patient Problems (1) Stroke Current Visit: Yes Comment: Melisa satinder. Appreciate Neuro assistance. Continue ASA/Plavix for 90 days, then Plavix monotherapy. Intolerant to statins. Continue Amlodipine. PT/OT, PMRU referral (2) HTN (hypertension) Current Visit: No Comment: Continue Amlodipine (3) COPD (chronic obstructive pulmonary disease) Current Visit: No Comment: Continue home meds (4) Depression Current Visit: No Comment: Anxiety. Continue seroquel and xanax (5) GERD (gastroesophageal reflux disease) Current Visit: No Comment: Stable, continue PPI. (6) DVT prophylaxis Current Visit: No Comment: SQ heparin Status and Disposition: Inpatient, awaiting rehab
[2017-03-10] MEDS: QUEtiapine TAB* 100 MG PO SCH (21:03)
[2017-03-11] MEDS: Heparin VIAL(*) 5000 UNITS/ML VIAL (FIVE THOUSAND) SUBCUT SCH ×3 (05:07→20:20)
[2017-03-11] MEDS: Mometasone/Formoter 200/5 MDI INH SCH ×2 (08:55→19:55)
[2017-03-11] MEDS: Tiotropium CAP.INH* CAP.INH/18 MCG INH SCH (08:55)
[2017-03-11] MEDS: amLODIPine TAB* 5 MG PO SCH (09:51)
[2017-03-11] MEDS: Clopidogrel TAB* 75 MG PO SCH (09:51)
[2017-03-11] MEDS: Vitamin THERAPEUTIC TAB PO SCH (09:51)
[2017-03-11] MEDS: Aspirin EC Low Dose* 81 MG TAB.EC PO SCH (09:51)
[2017-03-11] MEDS: CMC:Pantoprazole TAB (NF) 40 MG TAB PO SCH (09:51)
[2017-03-11] MEDS: Docusate CAP* 100 MG PO SCH (09:52)
--- NOTE | 2017-03-11 15:45 | PN ---
Subjective Date of Service: 03/11/17 Interval History: Patient seen this afternoon. Reports no new symptoms, about the same as yesterday, maybe slightly improved. Feeling a bit wheezy and congested. Family History: Unchanged from Admission Social History: Unchanged from Admission Past Medical History: Unchanged from Admission Objective Active Medications: Albuterol/Ipratropium (Duoneb (Albuterol 2.5 Mg/Ipratropium 0.5 Mg)) 1 neb INH Q2H PRN Alprazolam (Xanax Tab*) 0.25 mg PO TID PRN Amlodipine Besylate (Norvasc Tab*) 10 mg PO DAILY PITA Aspirin (Aspirin Ec Low Dose*) 81 mg PO DAILY PITA Clopidogrel Bisulfate (Plavix Tab*) 75 mg PO DAILY PITA Docusate Sodium (Colace Cap*) 100 mg PO DAILY PITA Heparin Sodium (Porcine) (Heparin Vial(*)) 5,000 units SUBCUT Q8HR PITA Mometasone Furoate/Formoterol Fumar (Dulera 200/5 Mdi*) 2 puff INH BID PITA Multivitamins (Theragran Tab*) 1 tab PO DAILY PITA Pantoprazole Sodium (Protonix Tab (Nf)) 40 mg PO DAILY@0730 PITA Quetiapine Fumarate (Seroquel Tab*) 200 mg PO BEDTIME PITA Tiotropium [place] (Spiriva Cap.Inh*) 1 cap INH DAILY PITA Vital Signs 03/10/17 03/10/17 03/10/17 15:51 20:00 20:09 Temperature 98.1 F 98.6 F Pulse Rate 81 87 Respiratory 12 18 12 Rate Blood Pressure 119/82 172/74 (mmHg) O2 Sat by Pulse 97 96 Oximetry 03/11/17 03/11/17 03/11/17 08:00 09:01 11:48 Temperature Pulse Rate 88 82 Respiratory 20 18 18 Rate Blood Pressure 150/61 (mmHg) O2 Sat by Pulse 92 96 Oximetry Oxygen Devices in Use Now: None Appearance: Elderly, F, laying in chair in NAD Eyes: No Scleral Icterus Ears/Nose/Mouth/Throat: Mucous Membranes Moist Neck: NL Appearance and Movements; NL JVP Respiratory: Symmetrical Chest Expansion and Respiratory Effort, - - Mild end- expiratory wheezing Cardiovascular: NL Sounds; No Murmurs; No JVD, RRR Abdominal: NL Sounds; No Tenderness; No Distention Lymphatic: No Cervical Adenopathy Extremities: No Edema Skin: No Rash or Ulcers Neurological: Alert and Oriented x 3, - - R hemiparesthesia Result Diagrams: 03/09/17 04:12 03/09/17 04:12 Assess/Plan/Problems-Billing Assessment: Melisa satinder CVA s/p TPA in an 81 yo F with hx of HTN, COPD on home nocturnal O2, GERD, depression/anxiety - Patient Problems (1) Stroke Current Visit: Yes Comment: Melisa satinder. Appreciate Neuro assistance. Continue ASA/Plavix for 90 days, then Plavix monotherapy. Intolerant to statins. Continue Amlodipine. PT/OT, PMRU referral (2) HTN (hypertension) Current Visit: No Comment: Continue Amlodipine (3) COPD (chronic obstructive pulmonary disease) Current Visit: No Comment: Continue home meds (4) Depression Current Visit: No Comment: Anxiety. Continue seroquel and xanax (5) GERD (gastroesophageal reflux disease) Current Visit: No Comment: Stable, continue PPI. (6) DVT prophylaxis Current Visit: No Comment: SQ heparin Status and Disposition: Inpatient, awaiting rehab
--- NOTE | 2017-03-11 17:27 | PTEDU ---
Patient Name: LEAH MACEDO LEAH MACEDO selected video: Fall Prevention in the Hospital to view on 03/11/2017 at 5:26:49 PM fr jose [id number]
[2017-03-11] MEDS: QUEtiapine TAB* 100 MG PO SCH (20:20)
[2017-03-12] MEDS: Heparin VIAL(*) 5000 UNITS/ML VIAL (FIVE THOUSAND) SUBCUT SCH ×4 (05:06→22:01)
[2017-03-12] MEDS: Tiotropium CAP.INH* CAP.INH/18 MCG INH SCH (07:50)
[2017-03-12] MEDS: Mometasone/Formoter 200/5 MDI INH SCH ×2 (07:51→20:04)
[2017-03-12] MEDS: Clopidogrel TAB* 75 MG PO SCH (09:31)
[2017-03-12] MEDS: Aspirin EC Low Dose* 81 MG TAB.EC PO SCH (09:31)
[2017-03-12] MEDS: Docusate CAP* 100 MG PO SCH (09:31)
[2017-03-12] MEDS: Vitamin THERAPEUTIC TAB PO SCH (09:32)
[2017-03-12] MEDS: amLODIPine TAB* 5 MG PO SCH (09:32)
[2017-03-12] MEDS: CMC:Pantoprazole TAB (NF) 40 MG TAB PO SCH (09:32)
--- NOTE | 2017-03-12 15:04 | PN ---
Subjective Date of Service: 03/12/17 Interval History: No subj change. Concerned about her 's care , where she will go to rehab , what will happen after that, and her own anxiety. Family History: Unchanged from Admission Social History: Unchanged from Admission Past Medical History: Unchanged from Admission Objective Active Medications: Albuterol/Ipratropium (Duoneb (Albuterol 2.5 Mg/Ipratropium 0.5 Mg)) 1 neb INH Q2H PRN PRN Reason: SOB/WHEEZING Last Admin: 03/10/17 12:10 Dose: 1 neb Alprazolam (Xanax Tab*) 0.25 mg PO TID PRN PRN Reason: ANXIETY Last Admin: 03/10/17 12:57 Dose: 0.25 mg Amlodipine Besylate (Norvasc Tab*) 10 mg PO DAILY [facility] Last Admin: 03/12/17 09:32 Dose: 10 mg Aspirin (Aspirin Ec Low Dose*) 81 mg PO DAILY [facility] Last Admin: 03/12/17 09:31 Dose: 81 mg Clopidogrel Bisulfate (Plavix Tab*) 75 mg PO DAILY [facility] Last Admin: 03/12/17 09:31 Dose: 75 mg Docusate Sodium (Colace Cap*) 100 mg PO DAILY [facility] Last Admin: 03/12/17 09:31 Dose: 100 mg Heparin Sodium (Porcine) (Heparin Vial(*)) 5,000 units SUBCUT Q8HR [facility] Last Admin: 03/12/17 05:06 Dose: 5,000 units Mometasone Furoate/Formoterol Fumar (Dulera 200/5 Mdi*) 2 puff INH BID [facility] Last Admin: 03/12/17 07:51 Dose: 2 puff Multivitamins (Theragran Tab*) 1 tab PO DAILY [facility] Last Admin: 03/12/17 09:32 Dose: 1 tab Pantoprazole Sodium (Protonix Tab (Nf)) 40 mg PO DAILY@0730 [facility] Last Admin: 03/12/17 09:32 Dose: 40 mg Quetiapine Fumarate (Seroquel Tab*) 200 mg PO BEDTIME [facility] Last Admin: 03/11/17 20:20 Dose: 200 mg Tiotropium [place] (Spiriva Cap.Inh*) 1 cap INH DAILY [facility] Last Admin: 03/12/17 07:50 Dose: 1 cap Vital Signs 03/11/17 03/11/17 03/11/17 15:13 19:12 20:00 Temperature 98.0 F 98.3 F Pulse Rate 86 87 Respiratory 20 20 18 Rate Blood Pressure 132/53 138/58 (mmHg) O2 Sat by Pulse 95 95 Oximetry 03/11/17 03/12/17 03/12/17 23:43 00:07 00:12 Temperature 97.9 F Pulse Rate 87 87 Respiratory Rate Blood Pressure 119/27 146/54 (mmHg) O2 Sat by Pulse 91 Oximetry 03/12/17 03/12/17 03/12/17 00:51 07:53 08:00 Temperature 97.6 F Pulse Rate 84 81 Respiratory 20 18 16 Rate Blood Pressure 153/59 (mmHg) O2 Sat by Pulse 97 96 Oximetry 03/12/17 11:07 Temperature Pulse Rate 79 Respiratory 18 Rate Blood Pressure 139/51 (mmHg) O2 Sat by Pulse 95 Oximetry Oxygen Devices in Use Now: None Appearance: Alert, supine in bed. Anxious but otherwise looks comfortable. 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 Result Diagrams: 03/09/17 04:12 03/09/17 04:12 Microbiology and Other Data: Microbiology 03/08/17 04:30 Nasal Screen MRSA (PCR)(MARK) - Final Nasal Mrsa Negative Assess/Plan/Problems-Billing Assessment: L thalamus CVA s/p TPA in an 81 yo F with hx of HTN, COPD on home nocturnal O2, GERD, depression/anxiety - Patient Problems (1) Stroke Current Visit: Yes Status: Acute Code(s): I63.9 - CEREBRAL INFARCTION, UNSPECIFIED SNOMED Code(s): 618802463 Comment: L thalamus. Appreciate Neuro assistance. Continue ASA/Plavix for 90 days, then Plavix monotherapy. Intolerant to statins. Continue Amlodipine. PT/OT , [facility] referral (2) Aortic stenosis Current Visit: No Status: Chronic Priority: Low Code(s): I35.0 - NONRHEUMATIC AORTIC (VALVE) STENOSIS SNOMED Code(s): 22633098 Comment: Moderate per echo 03/08/17. Under the care of Dr. Angel. (3) COPD (chronic obstructive pulmonary disease) Current Visit: No Status: Chronic Code(s): J44.9 - CHRONIC OBSTRUCTIVE PULMONARY DISEASE, UNSPECIFIED SNOMED Code(s): 22030804 Comment: Continue home meds (4) HTN (hypertension) Current Visit: No Status: Acute Code(s): I10 - ESSENTIAL (PRIMARY) HYPERTENSION SNOMED Code(s): 55458312 Comment: Continue Amlodipine (5) Bipolar 1 disorder Current Visit: Yes Status: Acute Code(s): F31.9 - BIPOLAR DISORDER, UNSPECIFIED SNOMED Code(s): 634741619 Comment: Contiue quetiapine, PRN alprazolam. Status and Disposition: Inpatient, awaiting rehab
[2017-03-12] MEDS: QUEtiapine TAB* 100 MG PO SCH (22:01)
[2017-03-12] MEDS: ALPRAZolam TAB* 0.25 MG PO PRN (22:10)
[2017-03-13] MEDS: Heparin VIAL(*) 5000 UNITS/ML VIAL (FIVE THOUSAND) SUBCUT SCH ×3 (06:14→21:10)
[2017-03-13] MEDS: Aspirin EC Low Dose* 81 MG TAB.EC PO SCH (08:47)
[2017-03-13] MEDS: amLODIPine TAB* 5 MG PO SCH (08:47)
[2017-03-13] MEDS: Vitamin THERAPEUTIC TAB PO SCH (08:47)
[2017-03-13] MEDS: Docusate CAP* 100 MG PO SCH (08:47)
[2017-03-13] MEDS: Clopidogrel TAB* 75 MG PO SCH (08:47)
[2017-03-13] MEDS: CMC:Pantoprazole TAB (NF) 40 MG TAB PO SCH (08:47)
[2017-03-13] MEDS: ALPRAZolam TAB* 0.25 MG PO PRN ×2 (08:48→21:09)
[2017-03-13] MEDS: Tiotropium CAP.INH* CAP.INH/18 MCG INH SCH (09:11)
[2017-03-13] MEDS: Mometasone/Formoter 200/5 MDI INH SCH ×2 (09:11→20:47)
--- NOTE | 2017-03-13 14:49 | PN ---
Subjective Date of Service: 03/13/17 Interval History: Getting stronger. Very anxious about getting detailed instructions about what to do in terms of PT when she eventually goes home. Family History: Unchanged from Admission Social History: Unchanged from Admission Past Medical History: Unchanged from Admission Objective Active Medications: Albuterol/Ipratropium (Duoneb (Albuterol 2.5 Mg/Ipratropium 0.5 Mg)) 1 neb INH Q2H PRN PRN Reason: SOB/WHEEZING Last Admin: 03/10/17 12:10 Dose: 1 neb Alprazolam (Xanax Tab*) 0.25 mg PO TID PRN PRN Reason: ANXIETY Last Admin: 03/13/17 08:48 Dose: 0.25 mg Amlodipine Besylate (Norvasc Tab*) 10 mg PO DAILY [facility] Last Admin: 03/13/17 08:47 Dose: 10 mg Aspirin (Aspirin Ec Low Dose*) 81 mg PO DAILY [facility] Last Admin: 03/13/17 08:47 Dose: 81 mg Clopidogrel Bisulfate (Plavix Tab*) 75 mg PO DAILY [facility] Last Admin: 03/13/17 08:47 Dose: 75 mg Docusate Sodium (Colace Cap*) 100 mg PO DAILY [facility] Last Admin: 03/13/17 08:47 Dose: 100 mg Heparin Sodium (Porcine) (Heparin Vial(*)) 5,000 units SUBCUT Q8HR [facility] Last Admin: 03/13/17 06:14 Dose: 5,000 units Mometasone Furoate/Formoterol Fumar (Dulera 200/5 Mdi*) 2 puff INH BID [facility] Last Admin: 03/13/17 09:11 Dose: 2 puff Multivitamins (Theragran Tab*) 1 tab PO DAILY [facility] Last Admin: 03/13/17 08:47 Dose: 1 tab Pantoprazole Sodium (Protonix Tab (Nf)) 40 mg PO DAILY@0730 [facility] Last Admin: 03/13/17 08:47 Dose: 40 mg Quetiapine Fumarate (Seroquel Tab*) 200 mg PO BEDTIME [facility] Last Admin: 03/12/17 22:01 Dose: 200 mg Tiotropium [place] (Spiriva Cap.Inh*) 1 cap INH DAILY [facility] Last Admin: 03/13/17 09:11 Dose: 1 cap Vital Signs 03/12/17 03/12/17 03/12/17 15:56 16:00 20:00 Temperature 98.2 F Pulse Rate 87 83 Respiratory 18 18 Rate Blood Pressure 145/56 (mmHg) O2 Sat by Pulse 96 97 97 Oximetry 03/12/17 03/12/17 03/12/17 20:30 22:10 23:12 Temperature 98.1 F Pulse Rate 80 Respiratory 20 20 20 Rate Blood Pressure 151/58 (mmHg) O2 Sat by Pulse 97 Oximetry 03/12/17 03/13/17 03/13/17 23:31 00:10 01:46 Temperature 98.5 F Pulse Rate 80 Respiratory 20 18 Rate Blood Pressure 137/54 (mmHg) O2 Sat by Pulse 96 97 Oximetry 03/13/17 03/13/17 03/13/17 07:54 08:00 08:48 Temperature 97.5 F Pulse Rate 73 Respiratory 20 20 20 Rate Blood Pressure 121/52 (mmHg) O2 Sat by Pulse 97 Oximetry 03/13/17 03/13/17 09:14 10:48 Temperature Pulse Rate 83 Respiratory 16 20 Rate Blood Pressure (mmHg) O2 Sat by Pulse 95 Oximetry Oxygen Devices in Use Now: None Appearance: Alert, partly up in bed. In good spirits. Looks comfortable. Eyes: No Scleral Icterus Extremities: No Edema, No Clubbing, Cyanosis, - Skin: No Rash or Ulcers, No Nodules or Sclerosis, - Neurological: Alert and Oriented x 3, NL Sensation, NL Gait, NL Muscle Strength and Tone, - Result Diagrams: 03/09/17 04:12 03/09/17 04:12 Microbiology and Other Data: Microbiology 03/08/17 04:30 Nasal Screen MRSA (PCR)(MARK) - Final Nasal Mrsa Negative Assess/Plan/Problems-Billing Assessment: Melisa rajan CVA s/p TPA in an 81 yo F with hx of HTN, COPD on home nocturnal O2, GERD, depression/anxiety - Patient Problems (1) Stroke Current Visit: Yes Status: Acute Code(s): I63.9 - CEREBRAL INFARCTION, UNSPECIFIED SNOMED Code(s): 110595699 Comment: Melisa thalamus. Appreciate Neuro assistance. Continue ASA/Plavix for 90 days, then Plavix monotherapy. Intolerant to statins. Continue Amlodipine. [facility] cannot accept her. She ask if the aides caring for her can also care for her--could consider discharge 03/14. (2) Aortic stenosis Current Visit: No Status: Chronic Priority: Low Code(s): I35.0 - NONRHEUMATIC AORTIC (VALVE) STENOSIS SNOMED Code(s): 62754670 Comment: Moderate per echo 03/08/17. Under the care of Dr. Angel. (3) COPD (chronic obstructive pulmonary disease) Current Visit: No Status: Chronic Code(s): J44.9 - CHRONIC OBSTRUCTIVE PULMONARY DISEASE, UNSPECIFIED SNOMED Code(s): 82032906 Comment: Continue home meds (4) HTN (hypertension) Current Visit: No Status: Acute Code(s): I10 - ESSENTIAL (PRIMARY) HYPERTENSION SNOMED Code(s): 31603039 Comment: Continue Amlodipine (5) Bipolar 1 disorder Current Visit: Yes Status: Acute Code(s): F31.9 - BIPOLAR DISORDER, UNSPECIFIED SNOMED Code(s): 438199638 Comment: Contiue quetiapine, PRN alprazolam. Status and Disposition: Inpatient, awaiting rehab
[2017-03-13] MEDS: QUEtiapine TAB* 100 MG PO SCH (21:09)
[2017-03-14] MEDS: Heparin VIAL(*) 5000 UNITS/ML VIAL (FIVE THOUSAND) SUBCUT SCH (05:34)
[2017-03-14 09:02] VITALS: BP 135/42
[2017-03-14] MEDS: Vitamin THERAPEUTIC TAB PO SCH (09:10)
[2017-03-14] MEDS: amLODIPine TAB* 5 MG PO SCH (09:10)
[2017-03-14] MEDS: CMC:Pantoprazole TAB (NF) 40 MG TAB PO SCH (09:10)
[2017-03-14] MEDS: ALPRAZolam TAB* 0.25 MG PO PRN (09:11)
[2017-03-14] MEDS: Docusate CAP* 100 MG PO SCH (09:11)
[2017-03-14] MEDS: Aspirin EC Low Dose* 81 MG TAB.EC PO SCH (09:11)
[2017-03-14] MEDS: Clopidogrel TAB* 75 MG PO SCH (09:11)
--- NOTE | 2017-03-14 10:49 | PN ---
Progress Note - Progress Note Date of Service: 03/14/17 Note: Time spent on discharge 50 minutes.
--- NOTE | 2017-03-14 16:36 | DS ---
CC: Dr. Zamudio DISCHARGE SUMMARY: DATE OF ADMISSION: DATE OF DISCHARGE: 03/14/17 HISTORY: This 81-year-old woman presented about 10:30 p.m. with a feeling of right- sided body was being numb and tingly. She was having a hard time walking. Rest of the history is detailed in the admission note. She was admitted to a telemetry unit. She was seen in consultation by Dr. Powers. She had an echoc ardiogram, which showed ejection fraction of 65%. There was severe dilatation of the left atrium. There was [id number]-[id number] concentric left ventricular hypertrophy. There was no patent foramen ova le. She had ultrasound of the carotids, which showed no hemodynamically significant stenosis. She had a CT of the brain. There was no intracranial mass or hemorrhage. MRI of the brain showed a sma ll subacute nonhemorrhagic infarct of the left thalamus. She was given tPA in the emergency room and monitored in the ICU as per protocol. She did well in [facility]. She is rather anxious, I note she has bipolar disorder, but she is certainly quite capa ble of following instructions and I think will do well at home. DISCHARGE DIAGNOSES: 1. Left thalamic stroke. 2. Aortic stenosis. 3. Chronic obstructive pulmonary disease. 4. Hypertension. 5. Bipolar disorder. DISCHARGE MEDICATIONS: 1. Aspirin 81 mg daily to stop on June 08. 2. Clopidogrel 75 mg daily. 3. Amlodipine 10 mg daily. 4. Fluticasone/salmeterol 500/50 one puff b.i.d. 5. Prevacid 15 mg daily. 6. Seroquel 200 mg h.s. 7. Multivitamin 1 daily. 8. Tiotropium 1 capsule daily. 9. Docusate 100 mg daily. [id number]/[facility] #: [id number]
== END 2017-03-14 12:05 | disposition home health service (06) | DRG 63 ==
LOC: ED 23:46 → ICU 03-08 02:17 → MEDTELE 03-09 12:27
PROVIDERS: ADMIT Internal Medicine; ATTEND Internal Medicine
DX: I63.9 Cerebral infarction, unspecified (principal); J44.9 Chronic obstructive pulmonary disease, unspecified; I35.0 Nonrheumatic aortic (valve) stenosis; I10 Essential (primary) hypertension; F41.9 Anxiety disorder, unspecified; K21.9 Gastro-esophageal reflux disease without esophagitis; E78.00 Pure hypercholesterolemia, unspecified; G47.30 Sleep apnea, unspecified; F31.9 Bipolar disorder, unspecified; R29.700 NIHSS score 0; R40.2412 Glasgow coma scale score 13-15, at arrival to emergency department; R20.2 Paresthesia of skin; Z82.0 Family history of epilepsy and other diseases of the nervous system; Z79.02 Long term (current) use of antithrombotics/antiplatelets; Z86.711 Personal history of pulmonary embolism; Z85.3 Personal history of malignant neoplasm of breast; Z90.710 Acquired absence of both cervix and uterus; Z88.8 Allergy status to other drugs, medicaments and biological substances; Z82.49 Family history of ischemic heart disease and other diseases of the circulatory system; Z92.3 Personal history of irradiation; Z87.891 Personal history of nicotine dependence; Z79.82 Long term (current) use of aspirin
CPT/HCPCS: 36415; 70450; 70551; 71010; 80048; 80053; 80061; 81003; 81015; 84484; 85025; 85027; 85610; 85730; 86850; 86900; 86901; 87086; 87641; 93005; 93306; 93880; 94640; 94760; 99406; A9270-GY; J0360; J1644; J2060; J2997

== ENCOUNTER 2019-03-14 16:48 | Emergency (ER) | payer MEDICARE, OTHER ==
--- OUTSIDE RECORDS SUMMARY | 2019-03-14 16:54 | XMS REPORT | Continuity of Care Document ---
:1935 External Reference #:[id number] Author Name Everett Zamudio M.D. (transmitted by agent of provider Jaclyn Lemons) [address] [place] [address] Care Team Providers Name Role Phone Rian Wilson MD - Care Team Information Blow Pit Helper [phone] Ophthalmology Bhavesh Rucker MD - Care Team Information B[employer] Pit Helper [phone] Otolaryngology Problems Active Problems Provider Date Chronic obstructive lung disease Nai Bonilla M.D. Onset: 05/18/2011 Asthma without status asthmaticus Everett Zamudio M.D. Onset: 10/16/2011 Benign essential hypertension Everett Zamudio M.D. Onset: 10/16/2011 Bipolar disorder Everett Zamudio M.D. Onset: 10/16/2011 Pure hypercholesterolemia Everett Zamudio M.D. Onset: 10/16/2011 Difficulty breathing Bang Angel M.D. Onset: 11/20/2012 Gastroesophageal reflux disease Everett Zamudio M.D. 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 Onset: 11/20/2013 Aortic valve disorder Bang Angel M.D. Onset: 11/20/2013 Heart murmur Traveling ECHO 1 Onset: 12/02/2013 Bipolar I disorder Everett Zamudio M.D. Onset: 03/18/2014 Encounter for screening for malignant Heena Weir MD Onset: 11/18/2015 neoplasm of respiratory organs Hypoxemia Heena Weir MD Onset: 08/10/2016 Essential hypertension Everett Zamudio M.D. Onset: 06/11/2018 Social History Type Date Description Comments Sex Unknown Tobacco Use Start: Unknown quit 2009; less than 1 ppd, began in her 20s. ETOH Use Denies alcohol use Tobacco Use Start: Unknown End: Patient is a former smoker Unknown Recreational Drug Use Denies Drug Use Smoking Status Reviewed: 02/19/19 Patient is a former smoker Exercise Type/Frequency Exercises sporadically Allergies, Adverse Reactions, Alerts Active Allergies Reaction Severity Comments Date Zocor abdom bloating 04/20/2008 Wellbutrin 2009 [place] 2009 Crestor myalgias 10/20/2011 Lipitor myalgias 12/20/2011 Pravastatin myalgias. 01/19/2012 Statins fatigue, muscle aches 06/03/2012 Zetia weakness severe 05/14/2014 Beta Adrenergic Blockers wheezing Moderate 08/08/2016 Inactive Allergies NKDA 05/10/2006 Medications Active Medications SIG Qnty Indications Ordering Date Provider Albuterol Sulfate 1 application J44.9 Everett Sherwood 10/11/2018 every 4 hours as Gloria Zamudio (2.5mg/3ML) 0.083% needed Nebulizer Torsemide 1 by mouth as 30tabs R60.9 Bang Barr 06/26/2017 10mg Tablets needed as directed Gloria Angel for weight 181lbs or higher Spironolactone 1 by mouth every 90tabs Bang Barr 05/15/2017 25mg day Gloria Angel Tablets Quetiapine Fumarate 2 tabs at bedtime TOMAS Gonzales 05/07/2017 100mg ( take 2 tablet po Tablets at bedtime) Amlodipine Besylate 1 by mouth every 90tabs Bang Barr 04/06/2017 2.5mg day Gloria Angel Tablets Colace 1 by mouth every Unknown 11/17/2015 100mg Capsules day Spiriva Handihaler Inhale The 90caps Everett Sherwood 03/18/2015 18mcg Contents Of 1 Gloria Zamudio Capsules Capsule Via Handihaler Daily Every Morning Proair HFA 2 puffs by mouth 1unmarisela Weir, 03/18/2014 108(90Base) every 4 hours as mcg/Act Aerosol needed Inhaler Companions Spacer 1units Adrian Joya 12/02/2010 Misc Gloria Carrillo,FACP Effexor XR 1 po qd (winter Unknown 75mg Caps ER Only) 24HR Prevacid 1 by mouth every Unknown 15mg Capsules DR day Multi Vitamin Daily 1 tablet daily Unknown Tablets Fluzone High-Dose Inject as Directed Unknown 0.5ml Tammi Oxygen please use o2 at Unknown Misc 2l/min at night Fumarate 2 daily Unknown Clopidogrel Bisulfate Take One Tablet By 90tabs Everett Sherwood Mouth Every Day Gloria Zamudio 75mg Tablets Medications Administered in Office Medication SIG Qnty Indications Ordering Provider Date PPD Injection Nurse Visit Paul 05/03/2011 Immunizations CPT Code Status Date Vaccine Lot # [id number] Given 06/11/2018 Influenza Virus Vaccine, Quadrivalent, Split, [id number] Preservative Free 85418 Given 05/03/2017 Influenza Virus Vaccine, Quadrivalent, Split, Preservative Free 74950 Given 06/02/2016 Fluzone High Dose 21943 Given 04/12/2015 Influenza Virus Vaccine, Quadrivalent, Split, [id number] Preservative Free 74085 Given 04/12/2015 Pneumococcal Conjugate Vaccine 13 Valent For [id number] Intramuscular Use 36528 Given 05/04/2014 Fluzone High Dose 68074 Given 02/13/2013 Pneumonia Vaccine [id number] Q2038 Given 03/19/2012 Fluzone Vaccine [id number] 45048 Given 10/16/2011 Tetanus And Diptheria (Td) For Adult Use [id number] Preservative Free Q2038 Given 08/04/2010 Fluzone Vaccine [id number] 78208 Given 2009 Influenza Virus Vaccine, Pandemic Formulation [id number] Vital Signs Date Vital Result Comment 02/19/2019 2:44pm Height 63 inches 5'3" Weight 189.00 lb Heart Rate 86 /min BP Systolic 136 mmHg BP Diastolic 68 mmHg O2 % BldC Oximetry 97 % BMI (Body Mass Index) 33.5 kg/m2 11/26/2018 3:18pm Height 63 inches 5'3" Weight 192.38 lb Heart Rate 84 /min BP Systolic Sitting 110 mmHg Rue regular cuff BP Diastolic Sitting 66 mmHg Rue regular cuff Respiratory Rate 12 /min O2 % BldC Oximetry 96 % BMI (Body Mass Index) 34.1 kg/m2 Results Test Date Facility Test Result H/L Range Note Basic Metabolic 02/10/2019 [facility] Sodium 141 mmol/L Normal 135-145 Panel [address] [place] [address] [phone] Potassium 4.6 mmol/L Normal 3.5-5.0 Chloride 110 mmol/L Normal 101-111 Co2 Carbon Dioxide 23 mmol/L Normal 22-32 Anion Gap 8 mmol/L Normal 2-11 Glucose 109 mg/dL High 70-100 Blood Urea Nitrogen 16 mg/dL Normal 6-24 Creatinine 0.75 mg/dL Normal 0.51-0.95 BUN/Creatinine Ratio 21.3 High 8-20 Calcium 8.5 mg/dL Low 8.6-10.3 Egfr Non- 74.0 >60 Egfr 89.5 >60 1 Lipid Profile 02/10/2019 [facility] Triglycerides 131 mg/dL 2 (Trig/Chol/HDL) [address] [place] [address] [phone] Cholesterol 195 mg/dL 3 HDL Cholesterol 39.0 mg/dL 4 LDL Cholesterol 130 mg/dL 5 1 Because ethnic data is not always readily available, this report includes an eGFR for both -Americans and non- Americans. The National Kidney Disease Education Program (NKDEP) does not endorse the use of the MDRD equation for patients that are not between the ages of 18 and 70, are , have extremes of body size, muscle mass, or nutritional status, or are non- or non-. According to the National Kidney Foundation, irrespective of diagnosis, the stage of the disease is based on the level of kidney function: Stage Description GFR(mL/min/1.73 m(2)) 1 Kidney damage with normal or decreased GFR 90 2 Kidney damage with mild decrease in GFR 60-89 3 Moderate decrease in GFR 30-59 4 Severe decrease in GFR 15-29 5 Kidney failure <15 (or dialysis) 2 Desirable: <150 Borderline High: 150-199 High: 200-499 Very High: >500 3 Desirable: <200 Borderline High: 200-239 High: >239 4 Low: <40 Desirable: 40-60 High: >60 5 Desirable: <100 Near Optimal: 100-129 Borderline High: 130-159 High: 160-189 Very High: >189 Procedures Date Code Description Status 12/13/2018 [id number] Mammogram Completed 11/26/2017 [id number] Mammogram Completed 11/24/2016 [id number] Mammogram Completed 11/08/2015 [id number] Mammogram Completed 10/19/2015 [id number] Colonoscopy Completed 10/26/2014 [id number] Mammogram Completed 10/23/2013 [id number] Bone Mineral Density Test Completed 10/23/2013 [id number] Mammogram Completed 09/30/2012 [id number] Mammogram Completed 02/29/2012 [id number] Diabetic Retinal Eye Exam Completed 04/18/2011 [id number] Bone Mineral Density Test Completed 09/26/2010 [id number] Mammogram Completed 03/28/2010 [id number] Mammogram Completed 09/28/2009 [id number] Colonoscopy Completed 09/20/2009 [id number] Mammogram Completed Medical Devices Description No Information Available Encounters Type Date Location Provider Dx Diagnosis Office Visit 11/26/2018 Pulmonology [facility] Heena [place], R06.02 Shortness of 3:[facility]p [facility] c[facility] Crain J44.9 Chronic obstructive pulmonary disease, unspecified R09.02 Hypoxemia Assessments Date Code Description Provider 02/19/2019 Z00.00 Encounter for general adult medical Everett Zamudio M.D. examination without abnormal findings 02/19/2019 J44.9 Chronic obstructive pulmonary disease, Everett Zamudio M.D. unspecified 02/19/2019 I10 Essential (primary) hypertension Everett Zamudio M.D. 02/19/2019 E78.00 Pure hypercholesterolemia, unspecified Everett Zamudio M.D. 02/19/2019 F31.9 Bipolar disorder, unspecified Everett Zamudio M.D. 02/19/2019 I35.0 Nonrheumatic aortic (valve) stenosis Everett Zamudio M.D. 02/19/2019 K21.9 Gastro-esophageal reflux disease without Everett Zamudio M.D. esophagitis 02/19/2019 H61.21 Impacted cerumen, right ear Everett Zamudio M.D. 02/19/2019 Z85.3 Personal history of malignant neoplasm of Everett Zamudio M.D. breast 11/26/2018 R06.02 Shortness of breath Heena Weir MD 11/26/2018 J44.9 Chronic obstructive pulmonary disease, Heena Weir MD unspecified 11/26/2018 R09.02 Hypoxemia Heena Weir MD Plan of Treatment Future Appointment(s):08/25/2019 4:20 pm - Everett Zamudio M.D. at [facility]03/13/2019 2:20 pm - Bang Angel M.D. at [facility]02/19/2019 - Everett Zamudio M.D.Z00.00 Encounter for general adult medical examination without abnormal findingsComments:Discussed the new shingles vaccine; other shots current. (+) dental, eye scwjqR66.9 Chronic obstructive pulmonary disease, unspecifiedComments:Follows with pulmonary; no resp c/o at [id number] Essential (primary) hypertensionComments: BPs ok; weight down a bit. Labs ok except glucose up this year at 109Follow up: 6 months or prnE78.00 Pure hypercholesterolemia, unspecifiedComments:Diet Rx only; weight down a bit and lipids improved this year. LDL 130F31.9 Bipolar disorder, unspecifiedComments:On Rx per ccucoN28.0 Nonrheumatic aortic (valve) stenosisComments:Follows with gctazqqestJ22.9 Gastro-esophageal reflux disease without esophagitisComments:Stable with RxH61.21 Impacted cerumen, right earNew Orders:Ear Irrigation, Ordered: 02/19/19Z85.3 Personal history of malignant neoplasm of breastComments:Follows with heme/onc. Mammograms stable Functional Status Description No Information Available Mental Status Description No Information Available Referrals Description No Information Available
--- OUTSIDE RECORDS SUMMARY | 2019-03-14 16:54 | XMS REPORT | Continuity of Care Document ---
:1935 External Reference #:[id number] Author Name Bang Angel M.D. (transmitted by agent of provider Deanna Lopez) Address [address] [facility] [address] [place] [address] Care Team Providers Name Role Phone Rian Wilson MD - Care Team Information Feller Machine Operator [phone] Ophthalmology Bhavesh Rucker MD - Care Team Information Feller Machine Operator [phone] Otolaryngology Problems Active Problems Provider Date Chronic [...] Use Denies Drug Use Smoking Status Reviewed: 03/13/19 Patient is a former smoker Exercise Type/Frequency Exercises sporadically Allergies, Adverse Reactions, Alerts Active Allergies Reaction Severity Comments Date Zocor abdom bloating 04/20/2008 Wellbutrin 2009 Santiago 2009 Crestor myalgias 10/20/2011 Lipitor myalgias 12/20/2011 [...] take 2 tablet po Tablets at bedtime) Colace 1 by mouth every Unknown 11/17/2015 100mg Capsules day Spiriva Handihaler inhale the 90caps Everett Sherwood 03/18/2015 18mcg contents of 1 Gloria Zamudio Capsules capsule via handihaler daily every morning Proair HFA 2 puffs by mouth 1unmarisela Weir, 03/18/2014 108(90Base) every 4 hours as mcg/Act Aerosol needed Inhaler Companions Spacer 1units Adrian Joya 12/02/2010 Misc Gloria Carrillo,FACP Effexor XR 1 po qd 90caps Unknown 75mg Caps ER 24HR Prevacid 1 by mouth every Unknown 15mg Capsules DR day Multi Vitamin Daily 1 tablet daily Unknown Tablets Fluzone High-Dose Inject as Directed Unknown 0.5ml Tammi Oxygen please use o2 at Unknown Misc 2l/min at night Fumarate 100 mg 2 po daily Unknown Clopidogrel Bisulfate Take One Tablet By 90tabs Everett Sherwood Mouth Every Day Gloria Zamudio 75mg Tablets Advair Diskus 1 puff twice a day Unknown 500-50mcg/Dose Aerosol Medications Administered in Office Medication SIG Qnty Indications Ordering Provider Date PPD Injection Nurse Visit Paul 05/03/2011 Immunizations CPT Code Status Date Vaccine Lot # [id number] Given 06/11/2018 Influenza Virus Vaccine, Quadrivalent, Split, [id number] Preservative Free 00769 Given 05/03/2017 Influenza Virus Vaccine, Quadrivalent, Split, Preservative Free 61682 Given 06/02/2016 Fluzone High Dose 93361 Given 04/12/2015 Influenza Virus Vaccine, Quadrivalent, Split, [id number] Preservative Free 13941 Given 04/12/2015 Pneumococcal Conjugate Vaccine 13 Valent For [id number] Intramuscular Use 96681 Given 05/04/2014 Fluzone High Dose 12168 Given 02/13/2013 Pneumonia Vaccine [id number] Q2038 Given 03/19/2012 Fluzone Vaccine [id number] 77009 Given 10/16/2011 Tetanus And Diptheria (Td) For Adult Use [id number] Preservative Free Q2038 Given 08/04/2010 Fluzone Vaccine [id number] 26813 Given 2009 Influenza Virus Vaccine, Pandemic Formulation [id number] Vital Signs Date Vital Result Comment 03/13/2019 2:23pm Height 63 inches 5'3" Weight 186.00 lb with out shoes Heart Rate 80 /min BP Systolic 112 mmHg Rue, reg cuff BP Diastolic 60 mmHg Rue, reg cuff BP Systolic Sitting 90 mmHg BP Diastolic Sitting 60 mmHg BP Systolic Lying Down 104 mmHg ra sitting repeat BP Diastolic Lying Down 48 mmHg ra sitting repeat Respiratory Rate 18 /min BMI (Body Mass Index) 32.9 kg/m2 Ejection Fraction 60-65% echo 08/09/17 02/19/2019 2:44pm Height 63 inches 5'3" Weight 189.00 lb Heart Rate 86 /min BP Systolic 136 mmHg BP Diastolic 68 mmHg O2 % BldC Oximetry 97 % BMI (Body Mass Index) 33.5 kg/m2 Results Test Date Facility Test Result H/L Range Note Basic Metabolic 02/10/2019 [facility] Sodium 141 mmol/L Normal 135-145 [address] [place] [address] [phone] Potassium 4.6 mmol/L Normal 3.5-5.0 Chloride 110 mmol/L Normal 101-111 Co2 Carbon Dioxide 23 mmol/L Normal 22-32 Anion Gap 8 mmol/L Normal 2-11 Glucose 109 mg/dL High 70-100 Blood Urea Nitrogen 16 mg/dL Normal 6-24 Creatinine 0.75 mg/dL Normal 0.51-0.95 BUN/Creatinine Ratio 21.3 High 8-20 Calcium 8.5 mg/dL Low 8.6-10.3 Egfr Non- 74.0 >60 Egfr 89.5 >60 1 Lipid Profile 02/10/2019 [facility] Triglycerides 131 mg/dL 2 (Trig/Chol/HDL) [address] [place] [address] [phone] Cholesterol 195 mg/dL 3 HDL Cholesterol 39.0 [...] High: >189 Procedures Date Code Description Status 03/13/2019 87195 EKG Tracing & Interpretation Completed 12/13/2018 [id number] Mammogram Completed 11/26/2017 [id number] Mammogram Completed 11/24/2016 [id number] Mammogram Completed 11/08/2015 [id number] Mammogram Completed 10/19/2015 [id number] Colonoscopy Completed 10/26/2014 [id number] Mammogram Completed 10/23/2013 [id number] Bone Mineral Density Test Completed 10/23/2013 [id number] Mammogram Completed 09/30/2012 [id number] Mammogram Completed 02/29/2012 [id number] Diabetic Retinal Eye Exam Completed 04/18/2011 [id number] Bone Mineral Density Test Completed 09/26/2010 [id number] Mammogram Completed 03/28/2010 [id number] Mammogram Completed 09/28/2009 [id number] Colonoscopy Completed 09/20/2009 [id number] Mammogram Completed Medical Devices Description No Information Available Encounters Type Date Location Provider Dx Diagnosis Office Visit 11/26/2018 [facility] [place], R06.02 Shortness of 3:[facility]p [facility] caleb Crain J44.9 Chronic obstructive pulmonary disease, unspecified R09.02 Hypoxemia Assessments Date Code Description Provider 03/13/2019 E78.00 Pure hypercholesterolemia, unspecified Bang Angel M.D. 03/13/2019 F31.9 Bipolar disorder, unspecified Bang Angel M.D. 03/13/2019 I35.0 Nonrheumatic aortic (valve) stenosis Bang Angel M.D. 03/13/2019 R06.02 Shortness of breath Bang Angel M.D. 03/13/2019 I95.9 Low blood pressure Bang Angel M.D. 02/19/2019 Z00.00 Encounter for general adult medical [...] Heena Weir MD Plan of Treatment Future Appointment(s):04/01/2019 3:00 pm - Shazia Betancur NPhuong at [facility]03/28/2019 3:30 pm - Traveling ECHO 1 at [facility]08/25/2019 4:20 pm - Everett Zamudio M.D. at [facility]03/13/2019 - Bang Angel M.D.E78.00 Pure hypercholesterolemia, nhtlhljelcdB98.9 Bipolar disorder, jgflkcsjtyaU93.0 Nonrheumatic aortic (valve) stenosisNew Orders:Echocardiogram, Scheduled: 03/28/19Follow up:ov adjunct art history instructor 2-3 weeks ov [facility] 5 mR06.02 Shortness of rtfzrpL44.9 Low blood pressureRecommendations: check bp at home call if mostly over 150 Functional Status Description No Information Available Mental Status Description No Information Available Referrals Description No Information Available
[2019-03-14 17:03] VITALS: BP 131/67
--- NOTE | 2019-03-14 18:07 | UC ---
Shortness of Breath HPI - HPI Summary HPI Summary: 3 DAYS OF PROGRESSIVELY WORSENING COUGH, CONGESTION, SHORTNESS OF BREATH AND SORE THROAT. PATIENT HAS A HISTORY OF COPD AND WEARS 2 L OF OXYGEN BY NASAL CANNULA AT NIGHT. STATES SHE WOKE UP THIS MORNING FEELING WORSE. COUGH IS PRODUCTIVE OF GREEN SPUTUM. SHE DENIES FEVER. NO NAUSEA. ALSO COMPLAINING OF BOTH HER EYES BEING RED, IRRITATED AND CRUSTED SHUT IN THE MORNINGS SINCE THE ONSET OF HER RESPIRATORY SYMPTOMS. NO VISUAL DISTURBANCES. - History of Current Complaint Chief Complaint: UCRespiratory Stated Complaint: COUGH Time Seen by Provider: 03/14/19 16:57 Hx Obtained From: Patient Onset/Duration: Gradual Onset, Lasting Days, Still Present Timing: Constant Current Severity: Moderate Dyspnea At: Exertion Aggravating Factors: Movement Alleviating Factors: Bronchodilators, Oxygen Associated Signs & Symptoms: Positive: Cough (Productive), Wheezing, Nasal Congestion. Negative: Fever, Chills - Allergy/Home Medications Allergies/Adverse Reactions: Allergies Allergy/AdvReac Type Severity Reaction Status Date / Time bupropion [From Wellbutrin] Allergy Severe "FEELS BAD" Verified 03/14/19 17:06 lithium Allergy Severe Diarrhea Verified 03/14/19 17:06 Qharhgc-Dbd-Prw Reductase Allergy Severe MYALGIAS, Verified 03/14/19 17:06 Inhibitor FATIGUE Home Medications: Home Medications Amlodipine Besylate [Norvasc 10 mg tab] 25 mg PO DAILY 03/14/19 [History Confirmed 03/14/19] Spironolactone TAB* [Aldactone TAB 25 MG*] 1 tab PO DAILY 03/14/19 [History Confirmed 03/14/19] Torsemide TAB* [Demadex*] 100 mg PO DAILY 03/14/19 [History Confirmed 03/14/19] Venlafaxine EXT RELEASE CAP* [Effexor Xr CAP*] 1 tab PO DAILY 03/14/19 [History Confirmed 03/14/19] PMH/Surg Hx/FS Hx/Imm Hx Respiratory History: COPD, Asthma Other History Of: Negative For: Anticoagulant Therapy - Surgical History Surgical History: Yes Surgery Procedure, Year, and Place: hysterectomy/APPENDECTOMY 1984; RIGHT foot surgery-bunion; left breast lumpectomy, 2009, [facility]; TONSILS, - Family History Known Family History: Positive: Other - non contributory Negative: Cardiac Disease, Hypertension, Diabetes - Social History Alcohol Use: Rare Substance Use Type: None Substance Use Comment - Amount & Last Used: Seroquel Smoking Status (MU): Former Smoker Type: Cigarettes Amount Used/How Often: 1/2 PACK A DAY Have You Smoked in the Last Year: Yes - a couple When Did the Patient Quit Smoking/Using Tobacco: 2009 - Immunization History Most Recent Influenza Vaccination: 2013 Most Recent Tetanus Shot: unknown Most Recent Pneumonia Vaccination: 2010 Review of Systems All Other Systems Reviewed And Are Negative: Yes Constitutional: Positive: Fatigue Eyes: Positive: Drainage, Eye Redness ENT: Positive: Sore Throat, Nasal Discharge Respiratory: Positive: Shortness Of Breath, Cough Cardiovascular: Positive: Negative Gastrointestinal: Positive: Negative Physical Exam Triage Information Reviewed: Yes Appearance: Well-Appearing, No Pain Distress, Well-Nourished Vital Signs: Initial Vital Signs Temp 98.6 F 03/14/19 16:56 Pulse 78 03/14/19 16:56 Resp 17 03/14/19 16:56 BP 131/67 03/14/19 16:56 Pulse Ox 96 03/14/19 16:56 Vital Signs Reviewed: Yes Eyes: Positive: Conjunctiva Inflamed - MILD INJECTION BILATERALLY, Discharge - MILD DRAINAGE NOTED IN THE CORNERS OF EYES ENT: Positive: Hearing grossly normal, Pharynx normal, TMs normal Neck: Positive: Supple, Nontender, Enlarged Nodes @ - RIGHT SIDED LAD - PT STATES CHRONIC Respiratory: Positive: Lungs clear, No respiratory distress, No accessory muscle use, Decreased breath sounds. Negative: Wheezing Cardiovascular: Positive: RRR, Pulses Normal, Murmur:Sys:Grade _?_/ - 2/6 Abdomen Description: Positive: Soft Musculoskeletal: Positive: No Edema Neurological: Positive: Alert Psychological: Positive: Age Appropriate Behavior Skin: Negative: Rashes Shortness of Breath Dx - Differential Dx/Diagnosis Provider Diagnosis: COPD exacerbation, Bilateral conjunctivitis Discharge ED - Sign-Out/Discharge Documenting (check all that apply): Patient Departure All imaging exams completed and their final reports reviewed: No Studies - Discharge Plan Condition: Stable Disposition: HOME Prescriptions: Azithromycin 500 mg PO DAILY #5 tab Ciprofloxacin 0.3% OPTH.ANNA* [Cipro 0.3% Opth*] 1 drop BOTH EYES Q4H #1 btl predniSONE TAB* [Deltasone TAB*] 50 mg PO DAILY #3 tab Patient Education Materials: Acute Bronchitis (ED), COPD (Chronic Obstructive Pulmonary Disease) (ED), Conjunctivitis (ED) Referrals: Everett Zamudio MD [Primary Care Provider] - If Needed Additional Instructions: YOUR SYMPTOMS MAY BE VIRALLY MEDIATED BUT GIVEN YOUR HISTORY OF COPD YOU ARE AT HIGHER RISK FOR BACTERIAL INFECTION SO WE WILL COVER YOU WITH ANTIBIOTICS. IF YOU START THE MEDICINE BE SURE TO TAKE IT FOR THE FULL COURSE. REST, HYDRATE, OTC MEDS NEEDED. WILL ALSO TREAT WITH PREDNISONE TO HELP WITH AIRWAY INFLAMMATION. USE YOUR INHALERS AND NEBULIZER PRESCRIBED. SEEK FOLLOW-UP WITH YOUR PCP IF YOU ARE NOT IMPROVING OVER THE NEXT 1-2 WEEKS. GO TO ED WITHOUT FAIL IF YOU DEVELOP WORSENING SHORTNESS OF BREATH, CHEST PAIN, NAUSEA, SWEATS, DIZZINESS OR ANY OTHER CONCERNING SYMPTOMS. YOU MAY HAVE DEVELOPED AN INFECTIOUS PINK EYE FROM YOUR CURRENT RESPIRATORY ILLNESS. USE THE DROPS EVERY 4 HOURS WHILE AWAKE UNTIL 24 HOURS AFTER YOUR SYMPTOMS HAVE RESOLVED. THIS SHOULD BE AROUND 3-5 DAYS. - Billing Disposition and Condition Condition: STABLE Disposition: Home
== END 2019-03-14 17:35 | disposition home or self-care (01) ==
LOC: UCEAST 16:48
DX: J44.1 Chronic obstructive pulmonary disease with (acute) exacerbation (principal); H10.9 Unspecified conjunctivitis; Z87.891 Personal history of nicotine dependence
CPT/HCPCS: 99212; G0463

== ENCOUNTER 2019-09-09 13:24 | Emergency (ER) | payer MEDICARE, OTHER ==
--- NOTE | 2019-09-09 14:12 | ED ---
Complex/Multi-Sys Presentation - HPI Summary HPI Summary: Patient is an 84 y/o F presenting to the ED for a chief complaint of generalized weakness. Patient states she was trying to get out of bed and felt something was wrong after which she felt lightheadedness and weakness. Patient later fell and used a wall for support while she was falling. She believes her legs would cave if she was asked to ambulate at the present time. Currently, patient reports right LE numbness and weakness in the bilateral LE, more on the left than right. Patient denies head injury, fatigue, back pain, or loss of consciousness. No aggravating or alleviating factors are reported. Patient did not eat on 09/09/19. She endorses similar symptoms several years ago. 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 PSHx is significant for cardiac stent placement on 06/19/19. Patient takes 81 mg aspirin. She has an appointment at 15:00 on 09/09/19 with a [employer] [facility]. - History Of Current Complaint Chief Complaint: EDWeakness Time Seen by Provider: 09/09/19 13:26 Hx Obtained From: Patient Onset/Duration: Sudden Onset, Still Present Timing: Constant Severity Currently: Moderate Severity Initially: Moderate Associated Signs And Symptoms: Positive: Weakness - Generalized and bilateral LE , more on the left than right.. Negative: Back Pain - Allergies/Home Medications Allergies/Adverse Reactions: Allergies Allergy/AdvReac Type Severity Reaction Status Date / Time bupropion [From Wellbutrin] Allergy Severe "FEELS BAD" Verified 09/09/19 13:43 lithium Allergy Severe Diarrhea Verified 09/09/19 13:43 Xhbraqg-Gvj-Jic Reductase Allergy Severe MYALGIAS, Verified 09/09/19 13:43 Inhibitor FATIGUE Home Medications: Home Medications Fluticasone-Salmeterol 500-50* [Advair Diskus 500-50*] 1 puff INH BID 04/08/12 [ History Confirmed 09/09/19] Multivitamin [Multivitamins] 1 cap PO DAILY 10/19/15 [History Confirmed 09/09/19 ] Tiotropium CAPSULE (NF) [Spiriva CAPSULE (NF)] 1 cap.inh INH DAILY 03/08/17 [ History Confirmed 09/09/19] Clopidogrel TAB* [Plavix TAB*] 75 mg PO DAILY #30 tab 03/14/17 [Rx Confirmed 09/25] Venlafaxine EXT RELEASE CAP* [Effexor Xr CAP*] 75 mg PO DAILY 03/14/19 [History Confirmed 09/09/19] Albuterol HFA INHALER* [Ventolin HFA Inhaler*] 2 puff INH Q4H PRN 09/09/19 [ History Confirmed 09/09/19] Aspirin EC TAB* [Ecotrin EC Low Dose 81 MG*] 81 mg PO DAILY 09/09/19 [History Confirmed 09/09/19] Docusate CAP* [Colace Cap*] 100 mg PO DAILY 09/09/19 [History Confirmed 09/09/19 ] Pantoprazole TAB * [Protonix TAB*] 40 mg PO DAILY 09/09/19 [History Confirmed ] QUEtiapine TAB* [Seroquel 100 MG *] 200 mg PO BEDTIME 09/09/19 [History Confirmed 09/09/19] amLODIPine TAB* [Norvasc 5 mg TAB*] 5 mg PO DAILY 30 Days #30 tab 09/09/19 [Rx] PMH/Surg Hx/FS Hx/Imm Hx Previously Healthy: Yes Endocrine/Hematology History: Denies: Hx Anticoagulant Therapy, Hx Blood Disorders, Hx Blood Transfusions, Hx Bone Marrow Disease, Hx Diabetes, Hx Systemic Lupus Erythematosus, Hx Sickle Cell Disease, Hx Thyroid Disease, Hx Anemia, Hx Unexplained Bleeding, Other Endocrine/Hematological Disorders Cardiovascular History: Reports: Hx Embolism, Hx Hypercholesterolemia, Hx Valvular Heart Disease - unsure what Denies: Hx Aneurysm, Hx Angina, Hx Angioplasty, Hx Auto Implanted Cardiovert Defib, Hx Cardiac Arrest, Hx Cardiomegaly, Hx Congenital Heart Disease, Hx Congestive Heart Failure, Hx Coronary Artery Disease, Hx Deep Vein Thrombosis, Hx Hypotension, Hx Hypertension, Hx Pacemaker/ICD, Hx Peripheral Vascular Disease, Hx Rheumatic Fever, Hx Syncope, Other Cardiovascular Problems/Disorders Respiratory History: Reports: Hx Asthma, Hx Chronic Bronchitis, Hx Chronic Obstructive Pulmonary Disease (COPD), Hx Pulmonary Embolism, Hx Seasonal Allergies, Hx Sleep Apnea, Other Respiratory Problems/Disorders - pulmonary embolism 1976 and 1979 Denies: Hx Cystic Fibrosis, Hx Lung Cancer, Hx Pleural Effusion, Hx Pneumonia , Hx Pulmonary Edema GI History: Reports: Hx Gastroesophageal Reflux Disease Denies: Hx Cirrhosis, Hx Crohn's Disease, Hx Diverticulosis, Hx Gall Bladder Disease, Hx Gastrointestinal Bleed, Hx Hiatal Hernia, Hx Irritable Bowel, Hx Jaundice, Hx Obstructive Bowel, Hx Ileostomy, Hx Pyloric Stenosis, Hx Ulcer, Other GI Disorders History: Denies: Hx Acute Renal Failure, Hx Benign Prostatic Hyperplasia, Hx Chronic Renal Failure, Hx Dialysis, Hx Kidney Infection, Hx Kidney Stones, Hx Renal Disease, Other Problems/Disorders Musculoskeletal History: Denies: Hx Arthritis - HANDS, NECK, Hx Rheumatoid Arthritis, Hx Back Problems , Hx Bursitis, Hx Fibromyalgia, Hx Orthopedic Injury, Hx Osteoporosis, Hx Scoliosis, Hx Tendonitis, Other Musculoskeletal History Sensory History: Reports: Hx Contacts or Glasses, Hx Vision Problem - reading glasses Denies: Hx Cataracts, Hx Eye Injury, Hx Eye Prosthesis, Hx Glaucoma - laser surgery, Hx Legally Blind, Hx Macular Degeneration, Hx Deafness, Hx Hearing Aid , Hx Hearing Problem, Other Sensory Impairments Opthamlomology History: Reports: Hx Contacts or Glasses, Hx Vision Problem - reading glasses Denies: Hx Cataracts, Hx Eye Injury, Hx Eye Prosthesis, Hx Glaucoma - laser surgery, Hx Legally Blind, Hx Macular Degeneration, Other Sensory Impairments EENT History: Denies: Hx Deafness Neurological History: Reports: Hx CVA - Residual right-sided weakness Denies: Hx Dementia, Hx Developmental Delay, Hx Headaches, Hx Migraine, Hx Nerve Disease, Hx Seizures, Hx Spinal Cord Injury, Hx Transient Ischemic Attacks (TIA), Other Neuro Impairments/Disorders Psychiatric History: Reports: Hx Anxiety - ON MEDS, Hx Depression - ON MEDS, Hx Bipolar Disorder, Other Psychiatric Issues/Disorders - seasonal affective disorder Denies: Hx Attention Deficit Hyperactivity Disorder, Hx Eating Disorder, Hx Panic Disorder, Hx Post Traumatic Stress Disorder, Hx Inpatient Treatment, Hx Community Mental Health Tx, Hx Schizophrenia, Hx Suicide Attempt, Hx of Violent Episodes Against Others, Hx Substance Abuse - Cancer History Cancer Type, Location and Year: Breast cancer Hx Chemotherapy: No Hx Radiation Therapy: Yes - BREAST LEFT Hx Palliative Cancer Treatment: No - Surgical History Surgical History: Yes Surgery Procedure, Year, and Place: hysterectomy/APPENDECTOMY 1984; RIGHT foot surgery-bunion; left breast lumpectomy, 2009, ; TONSILS, Hx Anesthesia Reactions: No Infectious Disease History: No Infectious Disease History: Denies: Hx Hepatitis, Hx Human Immunodeficiency Virus (HIV), Hx of Known/ Suspected MRSA, Hx Shingles, Hx Tuberculosis, Hx Known/Suspected VRE, Hx Known/ Suspected VRSA, History Other Infectious Disease, Traveled Outside the [place] in Last 30 Days - Family History Known Family History: Negative: Cardiac Disease, Hypertension, Diabetes - Social History Occupation: Retired Alcohol Use: None Hx Substance Use: No Substance Use Type: Reports: None Substance Use Comment - Amount & Last Used: Seroquel Hx Tobacco Use: Yes Smoking Status (MU): Former Smoker Type: Cigarettes Amount Used/How Often: 1/2 PACK A DAY Have You Smoked in the Last Year: Yes - a couple Review of Systems Negative: Fatigue Negative: Myalgia - Negative back pain Neurological/Mental Status: Other - Positive lightheadedness Positive: Weakness - Generalized and bilateral LE, more on the left than right, Numbness - Right LE . Negative: Syncope - Negative LOC All Other Systems Reviewed And Are Negative: Yes Physical Exam - Summary Physical Exam Summary: Constitutional: Well-developed, Well-nourished, Alert. (-) Distressed Skin: Warm, Dry HENT: Normocephalic; Atraumatic Eyes: Conjunctiva normal Neck: Musculoskeletal ROM normal neck. (-) JVD, (-) Stridor, (-) Nuchal rigidity Cardio: Rhythm regular, rate normal, Heart sounds normal; Intact distal pulses; Radial pulses are 2+ and symmetric. (-) Murmur Pulmonary/Chest wall: Effort normal. (-) Respiratory distress, (-) Wheezes, (-) Rales Abd: Soft, (-) tenderness, (-) Distension, (-) Guarding, (-) Rebound Musculoskeletal: (-) Edema. No lumbar or thoracic tenderness, 2+ DP/PT pulses in both feet, sensation intact in both extremities, 5/5 strength intact. Ambulates w steady gait. Neuro: Alert, Oriented x3 Psych: Mood and affect Normal Triage Information Reviewed: Yes Vital Signs On Initial Exam: Initial Vitals Temp Pulse Resp BP Pulse Ox 97.5 F 71 22 184/62 96 09/09/19 13:35 09/09/19 13:35 09/09/19 13:35 09/09/19 13:35 09/09/19 13:35 Vital Signs Reviewed: Yes Procedures - Sedation Patient Received Moderate/Deep Sedation with Procedure: No Diagnostics - Vital Signs Vital Signs Temp Pulse Resp BP Pulse Ox 09/09/19 13:35 97.5 F 71 22 184/62 96 - Laboratory Result Diagrams: 09/09/19 14:27 09/09/19 14:27 Lab Statement: Any lab studies that have been ordered have been reviewed, and results considered in the medical decision making process. - EKG 13:48 Cardiac Rate: NL - 69 BPM EKG Rhythm: Sinus Rhythm ST Segment: Normal Ectopy: None EKG Comparison: No Significant Change - From 03/08/17 Summary of EKG Findings: An EKG at 13:48 reveals normal sinus rhythm with 69 BPM , nml axis, nml intervals. No STEMI. No acute changes. Compared to an EKG on , no significant change. ED physician has reviewed and interpreted this EKG. Re-Evaluation - Re-Evaluation First Eval Re-Evaluation Time: 15:31 Change: Unchanged Comment: At 15:31, patient is complaining of lightheadedness. Will PO challenge as patient has not eaten today. Second Eval Re-Evaluation Time: 16:01 Change: Improved Comment: At 16:01, patient is feeling better and was able to tolerate PO. Third Eval Re-Evaluation Time: 16:15 Change: Improved Comment: At 16:15, patient is able to ambulate with a steady gait. Complex Multi-Symp Course/Dx Course Of Treatment: 84 y/o F w hx CVA and R sided weakness p/w lightheadedness/ weakness. - VS hypertensive. Neuro exam: 5/5 strength BLE. SILT. No back pain. Patient states leg weakness resolved. No sensation deficits. Do not suspect intracranial pathology. - patient did not eat and became lightheaded when trying to ambulate. Given food here and feels better. Labs notable for normal troponin, EKG unchanged, do not suspect cardiac cause. - suspect patients symptoms related to poor PO intake. She feels much better and safely ambulated in ED several times. She uses a cane at home. No notable weakness throughout stay in ED. - started on amlodipine for HTN in ED. -Based on my eval today, no evidence of end organ damage from hypertension. -chemistry wnl,no MI noted , no chest pain/sob, no CHESTER, neuro exam non-focal. Recommendations for BP management: -The pt likely suffers from essential hypertension. -In the absence of a hypertensive emergency, which the pt does not have, there is no indication to aggressively treat elevated blood pressure, even when it approaches the systolic ~180 range. -The patient needs detention management of their blood pressure. -acutely, the pt may still have an elevated pressure, but over time the medication will take effect. - Diagnoses Provider Diagnoses: Fatigue, Lightheadedness Discharge ED - Sign-Out/Discharge Documenting (check all that apply): Patient Departure - Discharge - Discharge Plan Condition: Stable Disposition: HOME Prescriptions: amLODIPine TAB* [Norvasc 5 mg TAB*] 5 mg PO DAILY 30 Days #30 tab Patient Education Materials: Chronic Hypertension (ED), Lightheadedness (ED) Referrals: Everett Zamudio MD [Primary Care Provider] - Additional Instructions: You were seen in the emergency department for lightheadedness. Your blood pressure was slightly high here so we recommend starting amlodipine 5 mg daily. Please follow up with your primary care doctor in next 2-3 days and return to emergency department for trouble walking, weakness, falls, chest pain, worsening or concerning symptoms. It was a pleasure taking care of you today. - Billing Disposition and Condition Condition: STABLE Disposition: Home - Attestation Statements Document Initiated by Meliibe: Yes Documenting Scribe: Kerri Flood Provider For Whom Rafal is Documenting (Include Credential): Tyler Bernal MD Scribe Attestation: Kerri Eugene, scribed for Tyler Bernal MD on 09/10/19 at 1051. Scribe Documentation Reviewed: Yes Provider Attestation: The documentation as recorded by the Kerri mc accurately reflects the service I personally performed and the decisions made by , Tyler Bernal MD Status of Scribe Document: Viewed
--- OUTSIDE RECORDS SUMMARY | 2019-09-09 14:15 | XMS REPORT | Continuity of Care Document ---
:1935 External Reference #:[id number] Author Name Everett Zamudio M.D. (transmitted by agent of provider Sury Belcher ) [address] [facility] [facility] [address] [facility] [place] [address] Care Team Providers Name Role Phone Rian Wilson MD - Care Team Information Ladle Filler [phone] Ophthalmology Bhavesh Rucker MD - Care Team Information Ladle Filler [phone] Otolaryngology Problems Active Problems Provider Date Chronic [...] Use Denies Drug Use Smoking Status Reviewed: 09/02/19 Patient is a former smoker Exercise Type/Frequency Exercises sporadically Allergies, Adverse Reactions, Alerts Active Allergies Reaction Severity Comments Date Zocor abdom bloating 04/20/[address] 2009 Crestor myalgias 10/20/2011 Lipitor myalgias 12/20/2011 Pravastatin myalgias. 01/19/2012 Statins fatigue, muscle aches 06/03/2012 Zetia weakness severe 05/14/2014 Beta Adrenergic Blockers wheezing Moderate 08/08/2016 Inactive Allergies NKDA 05/10/2006 Medications Active Medications SIG Qnty Indications Ordering Date Provider Quetiapine Fumarate 2 tabs at bedtime TOMAS Gonzales 05/07/2017 ( take 2 tablet po 100mg Tablets at bedtime) Colace 1 by mouth every Unknown 11/17/2015 100mg Capsules day Proair HFA 2 puffs by mouth 1units Everett Sherwood 03/18/2014 every 4 hours as Gloria Zamudio 108(90Base) mcg/Act needed Aerosol Inhaler Companions Spacer 1units Adrian Joya 12/02/2010 Gloria Carrillo,FACP Misc Effexor XR 1 po qd 90caps Unknown 75mg Caps ER 24HR Multi Vitamin Daily 1 tablet daily Unknown Tablets Oxygen please use o2 at Unknown Misc 2l/min at night Clopidogrel Take One Tablet By 30tabs Everett Sherwood Bisulfate Mouth Every Day Gloria Zamudio 75mg Tablets Advair Diskus 1 puff twice a day 60units Everett Sherwood Gloria Zamudio 500-50mcg/Dose Aerosol Aspirin 81 1 by mouth every Unknown 81mg day Tablets Pantoprazole Sodium 1 by mouth every Unknown day 40mg Tablets DR Wilburn Handbrad take one Unknown inhalation a day 18mcg Capsules Medications Administered in Office Medication SIG Qnty Indications Ordering Provider Date PPD Injection Nurse Visit Paul 05/03/2011 Immunizations CPT Code Status Date Vaccine Lot # [id number] Given 06/11/2018 Influenza Virus Vaccine, Quadrivalent, Split, [id number] Preservative Free 76647 Given 05/03/2017 Influenza Virus Vaccine, Quadrivalent, Split, Preservative Free 34683 Given 06/02/2016 Fluzone High Dose 18030 Given 04/12/2015 Influenza Virus Vaccine, Quadrivalent, Split, [id number] Preservative Free 09792 Given 04/12/2015 Pneumococcal Conjugate Vaccine 13 Valent For [id number] Intramuscular Use 53913 Given 05/04/2014 Fluzone High Dose 38050 Given 02/13/2013 Pneumonia Vaccine [id number] Q2038 Given 03/19/2012 Fluzone Vaccine [id number] 02814 Given 10/16/2011 Tetanus And Diptheria (Td) For Adult Use [id number] Preservative Free Q2038 Given 08/04/2010 Fluzone Vaccine [id number] 62777 Given 2009 Influenza Virus Vaccine, Pandemic Formulation [id number] Vital Signs Date Vital Result Comment 09/02/2019 4:42pm Height 63 inches 5'3" Weight 179.00 lb Heart Rate 77 /min BP Systolic Sitting 143 mmHg BP Diastolic Sitting 73 mmHg BMI (Body Mass Index) 31.7 kg/m2 08/19/2019 3:16pm Height 63 inches 5'3" Weight 180.00 lb without shoes Heart Rate 77 /min BP Systolic Sitting 124 mmHg Ra BP Diastolic Sitting 70 mmHg Ra BP Systolic Standing 120 mmHg Ra BP Diastolic Standing 68 mmHg Ra BMI (Body Mass Index) 31.9 kg/m2 Ejection Fraction 65-70% Echo 07/21/19 Results Test Acquired Date Facility Test Result H/L Range Note Lipid Panel - 08/19/2019 [facility] Creatine <pending> [facility] [address] [employer] [place] [address] [phone] Procedures Date Code Description Status 07/28/2019 48870 EKG Tracing & Interpretation Completed 07/28/2019 55551 EKG Tracing & Interpretation Completed 07/21/2019 11626 ECHO Transthoracic, Real-Time 2D With Doppler And Completed Color Flow 07/21/2019 17631 ECHO Transthoracic, Real-Time 2D With Doppler And Completed Color Flow 07/17/2019 99858 EKG Tracing & Interpretation Completed 05/27/2019 46666 EKG Tracing & Interpretation Completed 05/19/2019 23460 Echocardiogram, Limited Study Completed 03/28/2019 72135 ECHO Transthoracic, Real-Time 2D With Doppler And Completed Color Flow 03/28/2019 94890 ECHO Transthoracic, Real-Time 2D With Doppler And Completed Color Flow 03/13/2019 43783 EKG Tracing & Interpretation Completed 12/13/2018 [id number] Mammogram Completed 11/26/2017 [id number] Mammogram Completed 11/24/2016 [id number] Mammogram Completed 11/08/2015 [id number] Mammogram Completed 10/19/2015 [id number] Colonoscopy Completed 10/26/2014 [id number] Mammogram Completed 10/23/2013 [id number] Bone Mineral Density Test Completed 10/23/2013 [id number] Mammogram Completed 09/30/2012 [id number] Mammogram Completed 02/29/2012 [id number] Diabetic Retinal Eye Exam Completed 04/18/2011 [id number] Bone Mineral Density Test Completed 09/26/2010 [id number] Mammogram Completed 03/28/2010 [id number] Mammogram Completed 09/28/2009 [id number] Colonoscopy Completed 09/20/2009 [id number] Mammogram Completed Medical Devices Description No Information Available Encounters Type Date Location Provider Dx Diagnosis Office Visit 08/19/2019 [facility] Shazia S. R94.31 Abnormal 3:30p Of Breann Betancur N.P. electrocardiogram [ECG] [EKG] I35.0 Nonrheumatic aortic (valve) stenosis E78.00 Pure hypercholesterolemia, unspecified R06.02 Shortness of breath Office Visit 07/17/2019 3:20p [facility] Bang Barr I35.0 Nonrheumatic Of Breann Angel M.D. aortic (valve) stenosis E78.00 Pure hypercholesterolemia, unspecified R06.02 Shortness of breath F31.9 Bipolar disorder, unspecified J44.9 Chronic obstructive pulmonary disease, unspecified Z95.2 Presence of prosthetic heart valve Office Visit 05/09/2019 3:30p [facility] Shazia SDavid I35.0 Nonrheumatic Of [employer] Foster, N.P. aortic (valve) stenosis E78.00 Pure hypercholesterolemia, unspecified R06.02 Shortness of breath Office 03/13/2019 [facility] Bang Barr E78.00 Pure Visit 2:20p [facility] Of Gloria Angel hypercholesterolemia, [employer] unspecified F31.9 Bipolar disorder, unspecified I35.0 Nonrheumatic aortic (valve) stenosis R06.02 Shortness of breath I95.9 Hypotension, unspecified Assessments Date Code Description Provider 09/02/2019 I10 Essential (primary) hypertension Everett Zamudio M.D. 09/02/2019 I35.0 Nonrheumatic aortic (valve) stenosis Everett Zamudio M.D. 09/02/2019 J44.9 Chronic obstructive pulmonary disease, Everett Zamudio M.D. unspecified 09/02/2019 F31.9 Bipolar disorder, unspecified Everett Zamudio M.D. 08/19/2019 R94.31 Abnormal electrocardiogram [ECG] [EKG] Shazai Betancur, N.P. 08/19/2019 I35.0 Nonrheumatic aortic (valve) stenosis Shazia Betancur, N.P. 08/19/2019 E78.00 Pure hypercholesterolemia, unspecified Shazia SDavid Betancur, N.P. 08/19/2019 R06.02 Shortness of breath Shazia Betancur, N.P. 07/28/2019 R94.31 Abnormal electrocardiogram [ECG] [EKG] Bang Angel M.D. 07/28/2019 R94.31 Abnormal electrocardiogram [ECG] [EKG] Nurse Visit cc 07/21/2019 I35.0 Nonrheumatic aortic (valve) stenosis Bang Angel M.D. 07/21/2019 I35.0 Nonrheumatic aortic (valve) stenosis Traveling ECHO 1 07/17/2019 I35.0 Nonrheumatic aortic (valve) stenosis Bang Angel M.D. 07/17/2019 E78.00 Pure hypercholesterolemia, unspecified Bang Angel M.D. 07/17/2019 R06.02 Shortness of breath Bang Angel M.D. 07/17/2019 F31.9 Bipolar disorder, unspecified Bang Angel M.D. 07/17/2019 J44.9 Chronic obstructive pulmonary disease, Bang Angel M.D. unspecified 07/17/2019 Z95.2 Heart valve replacement Bang Angel M.D. 05/19/2019 I35.0 Nonrheumatic aortic (valve) stenosis Bang Angel M.D. 05/19/2019 E78.00 Pure hypercholesterolemia, fatmataified Bang Angel M.D. 05/19/2019 R06.02 Shortness of breath Bang Angel M.D. 05/19/2019 F31.9 Bipolar disorder, maxi Angel M.D. 05/19/2019 I95.9 Low blood pressure Bang Angel M.D. 05/09/2019 I35.0 Nonrheumatic aortic (valve) stenosis Shazia Betancur, N.P. 05/09/2019 E78.00 Pure hypercholesterolemia, unspecified Shazia Betancur, N.P. 05/09/2019 R06.02 Shortness of breath Shazia Betancur, N.P. 03/28/2019 I35.0 Nonrheumatic aortic (valve) stenosis Bang Angel M.D. 03/28/2019 I35.0 Nonrheumatic aortic (valve) stenosis Traveling ECHO 1 03/13/2019 E78.00 Pure hypercholesterolemia, fatmataified Bnag Angel M.D. 03/13/2019 F31.9 Bipolar disorder, unspecified Bang Angel M.D. 03/13/2019 I35.0 Nonrheumatic aortic (valve) stenosis Bang Angel M.D. 03/13/2019 R06.02 Shortness of breath Bang Angel M.D. 03/13/2019 I95.9 Low blood pressure Bang Angel M.D. Plan of Treatment Future Appointment(s):02/23/2020 2:20 pm - [facility] - Everett Zamudio M.D.I10 Essential ( primary) hypertensionComments:BP ok today. Office BPs with her cardiology appts all good. Regular home BP checks advised; recordfor review.Follow up: Wellness exam in February or prnI35.0 Nonrheumatic aortic (valve) stenosisComments :Pt now s/p TAVR with good results. Stable with cardiology [id number] Chronic obstructive pulmonary disease, unspecifiedComments:No resp c/o; follows with [id number] Bipolar disorder, unspecifiedComments:Stable with psych rechecks Functional Status Description No Information Available Mental Status Description No Information Available Referrals Refer to Reason for Referral Status Appt Date Gregg Ratliff MD aortic stenosis; TAVR Sent [address] [place] [address] [phone]
--- OUTSIDE RECORDS SUMMARY | 2019-09-09 14:15 | XMS REPORT ---
:1935 Author Organization [facility] Care Team Providers Name Role Phone Kerri Cramer Primary Care Physician Unavailable Allergies, Adverse Reactions, Alerts Allergy Code CodeSystem Reaction Severity Criticality Status Start Substance Date Moderate Medications Medication Medication Medication Start Stop Route Dose Status Fill Code CodeSystem Date Date Instructions quetiapine 706123 RxNorm 2019- oral 100 mg completed for 30 4-03 07-02 tablet day(s) venlafaxine 790090 RxNorm 2019- oral 75 mg completed for 30 09-25 capsule, day(s) extended release 24hr quetiapine 966591 RxNorm 2019- oral 100 mg completed for 30 1-30 04-03 tablet day(s) quetiapine 797616 RxNorm 2019- oral 100 mg 1 completed 1 tablet at 9-20 10-20 tablet bedtime for at 30 day(s) bedtime Problems Problem Name Code CodeSystem Alternate Alternate Start End Status Narrative Code CodeSystem Date Date Bipolar 13316125 SNOMED-CT Active affective 3-22 disorder, unspecified Relevant diagnostic tests/laboratory data Narrative No Information Procedures Procedure Code CodeSystem Target Date of Status Service Device Device Device Name Site Procedure Delivery Code Name UID Location Office or [id number] SNOMED-CT () 2019-06-02 complete Mental other 6 d Health- outpatient [facility] visit for [address], [facility], of an [place], established [id number] patient, [id number] which requires at least 2 of these 3 goodrich components: A problem focused history; A problem focused examination; Straightforw willie medical decision making. Silviano SNOMED-CT () 2019-04-09 complete Mental d Health- [address], [id number] Encounters/Encounter Diagnoses Encounter Name Encounter Diagnosis Diagnosis Diagnosis Date of Service Code Code Name CodeSystem Diagnosis Delivery Location [facility] [address] [id number] Bipolar SNOMED-CT 2019-06-02 Behavioral Established affective Health patient 10 disorder, Clinic [address] unspecified [place], [place], [id number] Vital Signs No Information Social History Element Description Description Start End Code CodeSystem AdditionalInfo Date Date SexAssignedAtBirth Female 1935-0 F AdministrativeGender 1-18 Hospital Discharge Instructions Reason For Referral Medical Equipment FDA Assessments
--- OUTSIDE RECORDS SUMMARY | 2019-09-09 14:15 | XMS REPORT | Continuity of Care Document ---
:1935 External Reference #:[id number] Author Name Shazia Betancur N.P. (transmitted by agent of provider Yaneth Brown) Address [address] [place] [address] Care Team Providers Name Role Phone Rian Wilson MD - Care Team Information [employer] [phone] Ophthalmology Bhavesh Rucker MD - Care Team Information [employer] [phone] Otolaryngology Problems Active Problems Provider Date Chronic obstructive lung disease Nai Bonilla M.D. Onset: 05/18/2011 Asthma without status asthmaticus Everett Zamudio M.D. Onset: 10/16/2011 Benign essential hypertension vEerett Zamudio M.D. Onset: 10/16/2011 Bipolar disorder Everett [...] Use Denies Drug Use Smoking Status Reviewed: 08/19/19 Patient is a former smoker Exercise Type/Frequency Exercises sporadically Allergies, Adverse Reactions, Alerts Active Allergies Reaction Severity Comments Date Zocor abdom bloating 04/20/2008 Wellbutrin 2009 [place] 2009 Crestor myalgias 10/20/2011 Lipitor myalgias 12/20/2011 [...] Proair HFA 2 puffs by mouth 1units Heena Weir, 03/18/2014 every 4 hours as 108(90Base) mcg/Act needed Aerosol Inhaler Companions Spacer [...] every Unknown day 40mg Tablets DR Wilburn Handgloriaalejose a take one Unknown inhalation a day 18mcg Capsules Medications Administered in Office Medication SIG Qnty Indications Ordering Provider Date PPD Injection Nurse Visit Paul 05/03/2011 Immunizations CPT Code Status Date Vaccine Lot # [id number] Given 06/11/2018 Influenza Virus Vaccine, Quadrivalent, Split, [id number] Preservative Free 29829 Given 05/03/2017 Influenza Virus Vaccine, Quadrivalent, Split, Preservative Free 12398 Given 06/02/2016 Fluzone High Dose 10489 Given 04/12/2015 Influenza Virus Vaccine, Quadrivalent, Split, [id number] Preservative Free 40037 Given 04/12/2015 Pneumococcal Conjugate Vaccine 13 Valent For [id number] Intramuscular Use 95284 Given 05/04/2014 Fluzone High Dose 18702 Given 02/13/2013 Pneumonia Vaccine [id number] Q2038 Given 03/19/2012 Fluzone Vaccine [id number] 51924 Given 10/16/2011 Tetanus And Diptheria (Td) For Adult Use [id number] Preservative Free Q2038 Given 08/04/2010 Fluzone Vaccine [id number] 07222 Given 2009 Influenza Virus Vaccine, Pandemic Formulation [id number] Vital Signs Date Vital Result Comment 08/19/2019 3:16pm Height 63 inches 5'3" Weight 180.00 lb without shoes Heart Rate 77 /min BP Systolic Sitting 124 mmHg Ra BP Diastolic Sitting 70 mmHg Ra BP Systolic Standing 120 mmHg Ra BP Diastolic Standing 68 mmHg Ra BMI (Body Mass Index) 31.9 kg/m2 Ejection Fraction 65-70% Echo 07/21/19 07/17/2019 3:48pm Height 63 inches 5'3" Weight 187.00 lb with shoes Heart Rate 80 /min BP Systolic Sitting 124 mmHg lue reg cuff BP Diastolic Sitting 64 mmHg lue reg cuff BP Systolic Standing 118 mmHg lue reg cuff BP Diastolic Standing 68 mmHg lue reg cuff Respiratory Rate 14 /min BMI (Body Mass Index) 33.1 kg/m2 Ejection Fraction 65-70% echo. 05/19/19 Results Test Acquired Date Facility Test Result H/L Range Note Lipid Panel - 08/19/2019 [facility] Creatine <pending> [facility] [address] Kinase(CK) [place] [address] [phone] Procedures Date Code Description Status 07/28/2019 00779 EKG Tracing & Interpretation Completed 07/28/2019 06237 EKG Tracing & Interpretation Completed 07/21/2019 47996 ECHO Transthoracic, Real-Time 2D With Doppler And Completed Color Flow 07/21/2019 19325 ECHO Transthoracic, Real-Time 2D With Doppler And Completed Color Flow 07/17/2019 27174 EKG Tracing & Interpretation Completed 05/27/2019 88671 EKG Tracing & Interpretation Completed 05/19/2019 05394 Echocardiogram, Limited Study Completed 03/28/2019 81396 ECHO Transthoracic, Real-Time 2D With Doppler And Completed Color Flow 03/28/2019 05379 ECHO Transthoracic, Real-Time 2D With Doppler And Completed Color Flow 03/13/2019 28804 EKG Tracing & Interpretation Completed 12/13/2018 [id number] Mammogram Completed 11/26/2017 [id number] Mammogram Completed 11/24/2016 [id number] Mammogram Completed 11/08/2015 [id number] Mammogram Completed 10/19/2015 [id number] Colonoscopy Completed 10/26/2014 [id number] Mammogram Completed 10/23/2013 [id number] Bone Mineral Density Test Completed 10/23/2013 95646501 Mammogram Completed 09/30/2012 88153460 Mammogram Completed 02/29/2012 [id number] Diabetic Retinal Eye Exam Completed 04/18/2011 [id number] Bone Mineral Density Test Completed 09/26/2010 13645759 Mammogram Completed 03/28/2010 [id number] Mammogram Completed 09/28/2009 63333802 Colonoscopy Completed 09/20/2009 75805510 Mammogram Completed Medical Devices Description No Information Available Encounters Type Date Location Provider Dx Diagnosis Office Visit 07/17/2019 [facility] Bang Eugene35.0 Nonrheumatic aortic 3:20p Of Breann Angel M.D. (valve) stenosis E78.00 Pure hypercholesterolemia, unspecified R06.02 Shortness of breath F31.9 Bipolar disorder, unspecified J44.9 Chronic obstructive pulmonary disease, unspecified Z95.2 Presence of prosthetic heart valve Office Visit 05/09/2019 3:30p [facility] Shazia Eugene35.0 Nonrheumatic Of Breann Betancur N.PDavid aortic (valve) stenosis E78.00 Pure hypercholesterolemia, unspecified R06.02 Shortness of breath Office 03/13/2019 [facility] FDavid E78.00 Pure Visit 2:20p [facility]iology Of Gloria Angel hypercholesterolemia, Inverter And Clipper unspecified F31.9 Bipolar disorder, unspecified I35.0 Nonrheumatic aortic (valve) stenosis R06.02 Shortness of breath I95.9 Hypotension, unspecified Assessments Date Code Description Provider 08/19/2019 R94.31 Abnormal electrocardiogram [ECG] [EKG] Shazia S. Pipe, N.P. 08/19/2019 I35.0 Nonrheumatic aortic (valve) stenosis Shazia S. Foster, N.P. 08/19/2019 E78.00 Pure hypercholesterolemia, unspecified Shazia S. Foster, N.P. 08/19/2019 R06.02 Shortness of breath Shazia SDavid Betancur, N.P. 07/28/2019 R94.31 Abnormal electrocardiogram [ECG] [...] Bang Angel M.D. 05/19/2019 E78.00 Pure hypercholesterolemia, unspecified Bang Angel M.D. 05/19/2019 R06.02 Shortness of breath Bang Angel M.D. 05/19/2019 F31.9 Bipolar disorder, unspecified Bang Angel M.D. 05/19/2019 I95.9 Low blood pressure Bang Angel M.D. 05/09/2019 I35.0 Nonrheumatic aortic (valve) stenosis Shazia Betancur, N.P. 05/09/2019 E78.00 Pure hypercholesterolemia, unspecified Shazia Betancur, N.P. 05/09/2019 R06.02 Shortness of breath Shazia Betancur, N.P. 03/28/2019 I35.0 Nonrheumatic aortic (valve) stenosis Bang Angel M.D. 03/28/2019 I35.0 Nonrheumatic aortic (valve) stenosis Traveling ECHO 1 03/13/2019 E78.00 Pure hypercholesterolemia, fatmataified Bang Angel M.D. 03/13/2019 F31.9 Bipolar disorder, fatmataified Bang Angel M.D. 03/13/2019 I35.0 Nonrheumatic aortic [...] Everett Zamudio M.D. 02/19/2019 E78.00 Pure hypercholesterolemia, maxi Zamudio M.D. 02/19/2019 F31.9 Bipolar disorder, fatmataified Everett Zamudio M.D. 02/19/2019 I35.0 Nonrheumatic aortic (valve) stenosis Everett Zamudio M.D. 02/19/2019 K21.9 Gastro-esophageal reflux disease without Everett Zamudio M.D. esophagitis 02/19/2019 H61.21 Impacted cerumen, right ear Everett Zamudio M.D. 02/19/2019 Z85.3 Personal history of malignant neoplasm of Everett Zamudio M.D. breast Plan of Treatment Future Appointment(s):08/25/2019 4:20 pm - Eve[facility] Shazia Betancur NDavidP.R94.31 Abnormal electrocardiogram [ECG] [EKG]I35.0 Nonrheumatic aortic (valve) cldcbiccU28.00 Pure hypercholesterolemia, unspecifiedFollow up:03/2020 OV JFMR06.02 Shortness of breath Functional Status Description No Information Available Mental Status Description No Information Available Referrals Refer to Dr Reason for Referral Status Appt Date Depzion, MD Gregg aortic stenosis; TAVR Sent [address] [place] [address] [phone]
--- OUTSIDE RECORDS SUMMARY | 2019-09-09 14:16 | XMS REPORT | Continuity of Care Document ---
:1935 External Reference #:[id number] Author Name Bang Angel M.D. (transmitted by agent of provider Yaneth Brown) Address [address] [facility] [address] [place] [address] Care Team Providers Name Role Phone Rian Wilson MD - Care Team Information [employer] [phone] Ophthalmology Bhavesh Rucker MD - Care Team Information [employer] [phone] Otolaryngology Problems Active Problems Provider Date Chronic [...] Use Denies Drug Use Smoking Status Reviewed: 07/17/19 Patient is a former smoker Exercise Type/Frequency Exercises sporadically Allergies, Adverse Reactions, Alerts Active Allergies Reaction Severity Comments Date Zocor abdom bloating 04/20/2008 Wellbutrin 2009 [place] 2009 Crestor myalgias 10/20/2011 Lipitor myalgias 12/20/2011 [...] 100 mg 2 po daily Unknown Clopidogrel Take One Tablet By 90tabs Everett Sherwood Bisulfate Mouth Every Day Gloria Zamudio 75mg Tablets Advair Diskus 1 puff twice a day 60units Everett Sherwood Gloria Zamudio 500-50mcg/Dose Aerosol Aspirin 81 1 by mouth every Unknown 81mg day Tablets Pantoprazole Sodium 1 by mouth every Unknown day 40mg Tablets DR Wilburn Handihaler take one Unknown inhalation a day 18mcg Capsules Medications Administered in Office Medication SIG Qnty Indications Ordering Provider Date PPD Injection Nurse Visit Paul 05/03/2011 Immunizations CPT Code Status Date Vaccine Lot # [id number] Given 06/11/2018 Influenza Virus Vaccine, Quadrivalent, Split, [id number] Preservative Free 46906 Given 05/03/2017 Influenza Virus Vaccine, Quadrivalent, Split, Preservative Free 83748 Given 06/02/2016 Fluzone High Dose 67460 Given 04/12/2015 Influenza Virus Vaccine, Quadrivalent, Split, [id number] Preservative Free 08323 Given 04/12/2015 Pneumococcal Conjugate Vaccine 13 Valent For [id number] Intramuscular Use 14479 Given 05/04/2014 Fluzone High Dose 32315 Given 02/13/2013 Pneumonia Vaccine [id number] Q2038 Given 03/19/2012 Fluzone Vaccine [id number] 81344 Given 10/16/2011 Tetanus And Diptheria (Td) For Adult Use [id number] Preservative Free Q2038 Given 08/04/2010 Fluzone Vaccine [id number] 72704 Given 2009 Influenza Virus Vaccine, Pandemic Formulation [id number] Vital Signs Date Vital Result Comment 07/17/2019 3:48pm Height 63 inches 5'3" Weight 187.00 lb with shoes Heart Rate 80 /min BP Systolic Sitting 124 mmHg lue reg cuff BP Diastolic Sitting 64 mmHg lue reg cuff BP Systolic Standing 118 mmHg lue reg cuff BP Diastolic Standing 68 mmHg lue reg cuff Respiratory Rate 14 /min BMI (Body Mass Index) 33.1 kg/m2 Ejection Fraction 65-70% echo. 05/19/19 05/09/2019 3:17pm Height 63 inches 5'3" Weight 178.00 lb no shoes BP Systolic Sitting 112 mmHg lue reg cuff BP Diastolic Sitting 64 mmHg lue reg cuff BP Systolic Standing 112 mmHg lue reg cuff BP Diastolic Standing 62 mmHg lue reg cuff Respiratory Rate 16 /min BMI (Body Mass Index) 31.5 kg/m2 Ejection Fraction 03/28/19 echo. 60-65% Results Test Acquired Date Facility Test Result H/L Range Note Basic Metabolic 02/10/2019 [facility] Sodium 141 mmol/L Normal 135-[address] [place] [address] [phone] Potassium 4.6 mmol/L Normal 3.5-5.0 Chloride 110 mmol/L Normal 101-111 Co2 Carbon Dioxide 23 mmol/L Normal 22-32 Anion Gap 8 mmol/L Normal 2-11 Glucose 109 mg/dL High 70-100 Blood Urea Nitrogen 16 mg/dL Normal 6-24 Creatinine 0.75 mg/dL Normal 0.51-0.95 BUN/Creatinine Ratio 21.3 High 8-20 Calcium 8.5 mg/dL Low 8.6-10.3 Egfr Non- 74.0 >60 Egfr 89.5 >60 1 Lipid Profile 02/10/2019 [facility] Triglycerides 131 mg/dL 2 (Trig/Chol/HDL) [address] [place] [address] [phone] Cholesterol 195 mg/dL 3 HDL Cholesterol 39.0 [...] High: >189 Procedures Date Code Description Status 07/17/2019 14440 EKG Tracing & Interpretation Completed 05/27/2019 29083 EKG Tracing & Interpretation Completed 05/19/2019 69247 Echocardiogram, Limited Study Completed 03/28/2019 85802 ECHO Transthoracic, Real-Time 2D With Doppler And Completed Color Flow 03/28/2019 43713 ECHO Transthoracic, Real-Time 2D With Doppler And Completed Color Flow 03/13/2019 92856 EKG Tracing & Interpretation Completed 12/13/2018 [id number] Mammogram Completed 11/26/2017 [id number] Mammogram Completed 11/24/2016 [id number] Mammogram Completed 11/08/2015 [id number] Mammogram Completed 10/19/2015 [id number] Colonoscopy Completed 10/26/2014 [id number] Mammogram Completed 10/23/2013 [id number] Bone Mineral Density Test Completed 10/23/2013 [id number] Mammogram Completed 09/30/2012 [id number] Mammogram Completed 02/29/2012 [id number] Diabetic Retinal Eye Exam Completed 04/18/2011 601605138 Bone Mineral Density Test Completed 09/26/2010 [id number] Mammogram Completed 03/28/2010 [id number] Mammogram Completed 09/28/2009 48139628 Colonoscopy Completed 09/20/2009 [id number] Mammogram Completed Medical Devices Description No Information Available Encounters Type Date Location Provider Dx Diagnosis Office Visit 05/09/2019 [facility] Shazia Betancur, I35.0 Nonrheumatic aortic 3:30p Of [employer] N.P. (valve) stenosis E78.00 Pure hypercholesterolemia, unspecified R06.02 Shortness of breath Office 03/13/2019 [place] Bang Barr E78.00 Pure Visit 2:20p Cardiology Stefany Angel M.D. hypercholesterolemia, [employer] unspecified F31.9 Bipolar disorder, unspecified I35.0 Nonrheumatic aortic (valve) stenosis R06.02 Shortness of breath I95.9 Hypotension, unspecified Assessments Date Code Description Provider 07/17/2019 I35.0 Nonrheumatic aortic (valve) stenosis Bang [...] Traveling ECHO 1 03/13/2019 E78.00 Pure hypercholesterolemia, unspecified Bang Angel M.D. 03/13/2019 F31.9 Bipolar disorder, unspecified Bang Angel M.D. 03/13/2019 I35.0 Nonrheumatic aortic (valve) stenosis Bang Angel M.D. 03/13/2019 R06.02 Shortness of breath Bang Angel M.D. 03/13/2019 I95.9 Low blood pressure Bang Angel M.D. 02/19/2019 Z00.00 [facility] Everett Zamudio M.D. examination without abnormal [...] Zamudio M.D. breast Plan of Treatment Future Appointment(s):08/19/2019 3:30 pm - Shazia Betancur NPhuong at [facility]07/21/2019 3:30 pm - Traveling ECHO 1 at [facility]07/28/2019 2:00 pm - Nurse Visit cc at [facility]08/25/2019 4:20 pm - Everett Zamudio M.D. at [facility] - [facility]07/17/2019 - Bang Angel M.D.I35.0 Nonrheumatic aortic (valve) stenosisFollow up:ov Shazia 1 m ov [facility] 7 mE78.00 Pure hypercholesterolemia, iaowhweadlkT97.02 Shortness of pactjuK19.9 Bipolar disorder, xwbcknvmtpjN72.9 Chronic obstructive pulmonary disease, rzwgiysjvquO35.2 Heart valve replacementNew Therapy:Cardiac Rehab Functional Status Description No Information Available Mental Status Description No Information Available Referrals Refer to Reason for Referral Status Appt Date [place], MD Gregg aortic stenosis; TAVR Sent [address] [place] [address] [phone]
[2019-09-09 14:36] LABS: ABS Basophils 0.1 10^3/ul (0-0.2); ABS Eosinophils 0.4 10^3/ul (0-0.6); ABS Lymphocytes 2.1 10^3/ul (1.0-4.8); ABS Monocytes 0.6 10^3/ul (0-0.8); ABS Neutrophils 3.7 10^3/ul (1.5-7.7); Eosinophil % 6.3 %; Hematocrit 37 % (35-47); Hemoglobin 12.5 g/dL (12.0-16.0); Lymphocyte % 29.8 %; Mean Corpuscular HGB Conc 34 g/dL (31-36); Mean Corpuscular Hemoglobin 32 pg (27-31); Mean Corpuscular Volume 94 fL (80-97); Mean Platelet Volume 7.5 fL (7.4-10.4); Nucleated Red Blood Cells % 0.1; Platelet Count 236 10^3/uL (150-450); Red Blood Count 3.96 10^6 /uL (3.70-4.87); Red Cell Distribution Width 13 % (10-15); White Blood Count 6.9 10^3/uL (3.5-10.8)
[2019-09-09 15:15] LABS: Albumin 3.1 g/dL (3.2-5.2); Albumin/Globulin Ratio 1.2 (1-3); BUN/Creatinine Ratio 27.6 (8-20); Calcium 8.6 mg/dL (8.6-10.3); EGFR African American 120.1 (>60); EGFR Non-African American 99.3 (>60); Globulin 2.6 g/dL (2-4); Total Bilirubin 0.3 mg/dL (0.2-1.0); Total Protein 5.7 g/dL (6.4-8.9)
[2019-09-09] MEDS ORDERED: amLODIPine TAB* 5 MG PO ONE (15:54)
[2019-09-09 16:56] VITALS: BP 176/65
== END 2019-09-09 16:53 | disposition home or self-care (01) ==
LOC: ED 13:24
DX: R53.83 Other fatigue (principal); R42 Dizziness and giddiness; R53.1 Weakness; K21.9 Gastro-esophageal reflux disease without esophagitis; F41.9 Anxiety disorder, unspecified; F31.9 Bipolar disorder, unspecified; Z86.73 Personal history of transient ischemic attack (TIA), and cerebral infarction without residual deficits; Z79.82 Long term (current) use of aspirin; Z79.02 Long term (current) use of antithrombotics/antiplatelets; Z79.899 Other long term (current) drug therapy; Z88.8 Allergy status to other drugs, medicaments and biological substances; Z87.891 Personal history of nicotine dependence
CPT/HCPCS: 36415; 80053; 84484; 85025; 93005; 99284; A9270-GY